=== PATIENT | female | born 1930 | race Caucasian/White ===

== ENCOUNTER 2021-09-17 10:20 | Inpatient (IN) ==
[2021-09-17 11:18] LABS: Basophils # (auto) 0.02 K/uL (0-0.2); Basophils % (auto) 0.3 %; Eosinophils # (auto) 0.15 K/uL (0-0.5); Eosinophils % (auto) 2.2 %; Hematocrit (blood only) 43.8 % (37-47); Hemoglobin 14.4 g/dL (12.0-16.0); Immature Granulocytes # (auto) 0.02 K/uL (0.00-0.02); Immature Granulocytes % (auto) 0.3 %; Lymphocytes # (auto) 0.84 K/uL (1.2-3.4); Lymphocytes % (auto) 12.2 %; Mean Corpuscular Hemoglobin 32.8 pg (25-34); Mean Corpuscular Hgb Conc 32.9 g/dL (32-36); Mean Corpuscular Volume 99.8 fL (80-100); Mean Platelet Volume 11.2 fL (7.4-10.4); Monocytes # (auto) 0.63 K/uL (0.11-0.59); Monocytes % (auto) 9.1 %; Neutrophils # (auto) 5.23 K/uL (1.4-6.5); Neutrophils % (auto) 75.9 %; Platelet Count 181 K/uL (130-400); RDW Standard Deviation 51.2 fL (36.4-46.3); Red Blood Count 4.39 M/uL (4.2-5.4); White Blood Count 6.89 K/uL (4.8-10.8)
--- NOTE | 2021-09-17 11:19 | XRay Report ---
XR chest 1V portable HISTORY: 89 years-old Female Stroke Like Symptoms acute strokelike symptoms COMPARISON: None TECHNIQUE: Portable AP view of the chest FINDINGS: Cardiac silhouette is enlarged. Calcified plaque of the thoracic aorta. No pneumothorax, pleural effu elen or lobar airspace consolidation. Minimal linear subsegmental left lung base opacities. Degenerat shila changes of the shoulders and spine with sigmoidal scoliosis. IMPRESSION: 1. Cardiac megaly without pulmonary edema. 2. Minimal linear subsegmental left lung base densities suggest atelectasis. ACT 112: Negative or not required by law. The above report was generated using voice recognition software. It may contain grammatical, syntax o r spelling errors. Electronically signed by: Chester Bowman M.D. 09/17/2021 11:18 AM
--- NOTE | 2021-09-17 11:31 | Emergency Department Note ---
Impression & Plan RUE weakness, Acute UTI (urinary tract infection), Atrial fibrillation ED Provider Note NAME: NINO ARCE AGE: 89 SEX: F : 1930 ARRIVES VIA: Ambulance INFORMANT: Patient, the patient's daughter ED PROVIDER(S): Ac Miles DO CHIEF COMPLAINT: Weakness HPI: The patient is an 89-year-old female who presented to the emergency department for an evaluation of weakness. The patient states that she went to bed without any symptoms last evening. She states that she awoke this morning and noticed that she was not able to use her right arm. She states that the arm did not seem to want to work as normal. She states that she tried to ambulate down the cid to use the bathroom but noticed that she felt off balance but she is unsure if it was because she could not use her right arm to navigate where she was going. She was eating breakfast with her daughter and was noticed to have trouble using the right arm to feed herself and also was having trouble swallowing. She did take her medications this morning including her blood thinner. She was diagnosed with atrial fibrillation approximately 1 month ago which was a new diagnosis for her. She used to take apixaban 2.5 mg twice a day but was recently switched to 5 mg twice a day because of the atrial fibrillation. She denies having any headache. She denies having any fever or cough. She is noticed no lower extremity swelling or pain. She states the sym ptoms are somewhat improved on her right upper extremity but not absent. ROS: See above HPI for pertinent positives & negatives. A total of 10 systems reviewed and were otherwise negative. PAST MEDICAL HISTORY: See Below PAST SURGICAL HISTORY: See Below FAMILY HISTORY: See Below SOCIAL HISTORY: See Below HOME MEDICATIONS: See Below ALLERGIES: See Below VITALS: See Below PHYSICAL EXAMINATION: GENERAL: Patient is awake alert in no acute distress patient is resting com fortably and showing no signs of anxiety EYES: The conjunctivae are clear. The pupils are round and reactive. EARS, NOSE, MOUTH AND THROAT: The nose is without any evidence of any deformity. NECK: The neck is nontender and supple. RESPIRATORY: Normal respiratory effort is noted there is no evidence of wheezing rhonchi or rales CARDIOVASCULAR: Irregular heart sounds are noted to auscultation. There is no definite murmur. GASTROINTESTINAL: The abdomen is soft. Abdomen is nontender. PELVIS: The Pelvis is stable. No tenderness to palpation is noted. BACK: No midline tenderness or or step-off noted range of motion in flexion extension as well as rotation no signs of muscle spasm noted MUSCULOSKELETAL/EXTREMITIES: There is no evidence of gross deformity full range of motion is noted in the hips and shoulders. SKIN: Skin was warm and dry. Pedal edema was noted bilaterally. NEUROLOGIC: Patient is awake alert and oriented x3. Patient is able to hold each leg off the bed for greater than 5 seconds. Window Shade Installer strength was symmetric. There is no facial droop. There is no drift in the upper extremities. MEDICAL DECISION MAKING: The patient is an 89-year-old female who presented to the emergency department with her daughter for an evaluation of upper extremity weakness. The patient was noted to be in her normal state of health when she awoke this morning. She started having right upper extremity weakness she states approximately 8:00 this morning. She did present to the emergency department but was not made a stroke alert initially because she did not have any definite focal neurologic deficits. She did complain of some right upper extremity weakness but on exam her strength appeared to be symmetric. The patient's daughter thought she could have a urinary tract infection. She does have some problems with urinating and appears to have significant incontinence. I discussed the patient's laboratory and radiographic studies with her and her daughter. CT the brain did not show any acute changes. CT angiography did show some changes it could be consistent with the patient's presentation today. She does take oral anticoagulation and she has been compliant with it as recently as this morning prior to coming to the emergency department. She would not be a candidate for TPA. She also does not have signs of a large vessel occlusion at this time and her exam would reveal a very low NIH score given her current exam. I discussed the patient's condition with the on-call [facility] hospitalist. They have agreed to evaluate the patient in the emergency department for further management and disposition. She may need further work-up including MRI the brain or possibly an echocardiogram. The atrial fibrillation is a new diagnosis for her but she is on oral anticoagulation. Triage Nursing notes reviewed. Prior medical records reviewed Vital Signs: reviewed and remarkable for elevated blood pressure. Differential diagnosis: Infection, dehydration, metabolic abnormality, hypo/hyperglycemia, electrolyte disturbance, anemia, hypoxia, cardiac sources, intracerebral event, toxicologic, neurologic, as well as other pathologies. ER treatment provided: See below Diagnostics interpreted by me: ECG: EKG was obtained in the emergency department. My interpretation is atrial fibrillation at 71 bpm. Poor R wave progression was noted. Anterior and inferior Q waves were noted. No PVCs were noted. No previous tracing was available. Cardiac Monitoring: An order was placed for continuous cardiac monitoring. The monitor shows a rate of 80 bpm with atrial fibrillation rhythm. Laboratory studies: As stated above and show below. Imaging studies: See below Consultation(s): I discussed this case with Dr Ladd who was organisational psychologist for the [facility] Hospitalist group Past Med/Surg History Medical History Arthritis Atrial fibrillation Balance disorder Fall History of femoral hernia History of umbilical hernia Hypertension Hypomagnesemia Hypothyroidism Vitamin B12 deficiency Vitamin D deficiency Surgical History History of arthroscopic knee surgery History of bilateral knee replacement History of eye surgery History of hysterectomy History of tonsillectomy Family History Father Myocardial infarction Denies family history of Ovarian cancer Prostate cancer Breast cancer Colorectal cancer Social History Smoking Status: Never smoker Tobacco Type: E-cigarettes / Vaping Second Hand Exposure: No; Hx Alcohol Use: No Hx Substance Use: No Hearing Ability: Hard of Hearing Current Living Situation: Family current occupational status: retired Feels Safe at Home: Yes Dental Care, Regularly: Yes Physical Activity Frequency: Daily Physical Activity Frequency Comment: walks with walker around the house - cubie Seatbelt Use: always Sunscreen Use: No Allergies Allergies Allergy/AdvReac Type Severity Reaction Status Date / Time cinnamon Allergy Unknown Verified 09/17/21 14:08 papaya Allergy Unknown Verified 09/17/21 14:08 Home Meds Home Medications Medication Instructions Recorded Confirmed 5-hydroxytryptophan (5-HTP) 50 mg 50 mg PO HS cap 11/27/20 09/17/21 capsule (Natrol 5-HTP) ascorbate calcium (vitamin C) 500 500 mg PO QAM 11/27/20 09/17/21 mg tablet calcium citrate 200 mg (950 mg) 100 mg PO DAILY@1200 tab 11/27/20 09/17/21 tablet cholecalciferol (vitamin D3) 125 125 mcg PO QAM 11/27/20 09/17/21 mcg (5,000 unit) capsule (Dialyvite Vitamin D) cranberry 500 mg capsule 500 mg PO DAILY@1200 cap 11/27/20 09/17/21 docusate sodium 100 mg capsule 100 mg PO TIDM cap 11/27/20 09/17/21 (Colace) turmeric root extract 500 mg 500 mg PO DAILY@1200 11/27/20 09/17/21 capsule magnesium glycinate 100 mg tablet 400 mg PO QAM tab 04/07/21 09/17/21 Lactobacillus acidophilus 1 tab PO HS 09/17/21 09/17/21 (Acidophilus) apixaban 2.5 mg tablet (Eliquis) 2.5 mg PO BID 09/17/21 09/17/21 celecoxib 100 mg capsule (Celebrex) 100 mg PO QDD 09/17/21 09/17/21 coQ10 (ubiquinol) 200 mg capsule 400 mg PO QAM 09/17/21 09/17/21 cyanocobalamin (vitamin B-12) 500 mcg PO QDD 09/17/21 09/17/21 1,000 mcg tablet (Vitamin B-12) hydrochlorothiazide 25 mg tablet 25 mg PO QAM 09/17/21 09/17/21 levothyroxine 100 mcg tablet 100 mcg PO DAILYBB 09/17/21 09/17/21 lisinopril 20 mg tablet 20 mg PO BIDM 09/17/21 09/17/21 zinc 50 mg tablet 50 mg PO DAILY@1200 09/17/21 09/17/21 Previous Rx's Medication Instructions Recorded amoxicillin 500 mg tablet 500 mg PO .COMPLEX #12 tab 03/16/21 hydralazine 25 mg tablet 25 mg PO QID #360 tab 06/11/21 Results & Data (ED) Vital Signs Vital Signs - 24 hr 09/17/21 10:35 09/17/21 10:40 09/17/21 11:00 Temperature 37 C Temperature Source Oral Pulse Rate 97 H 84 74 Pulse Rhythm Irregular Pulse Strength Normal Respiratory Rate 21 16 20 Respiratory Effort / Characteristics Non-Labored Spontaneous Respiratory Depth Normal Blood Pressure 190/120 H 190/100 H Blood Pressure Mean 143 130 Blood Pressure Position Sitting Pulse Oximetry Oxygen Delivery Method Sepsis Recent Fever Within 48 Hours No Sepsis New/Unexplained Change in Mental Status N/A Sepsis Action Taken by Nursing No Action Required 09/17/21 11:30 09/17/21 11:51 09/17/21 12:00 Temperature Temperature Source Pulse Rate 82 70 Pulse Rhythm Pulse Strength Respiratory Rate 19 19 Respiratory Effort / Characteristics Respiratory Depth Blood Pressure 172/99 H Blood Pressure Mean 123 Blood Pressure Position Pulse Oximetry Oxygen Delivery Method Room Air Sepsis Recent Fever Within 48 Hours Sepsis New/Unexplained Change in Mental Status Sepsis Action Taken by Nursing 09/17/21 12:30 09/17/21 13:07 09/17/21 13:34 Temperature Temperature Source Pulse Rate 86 79 91 H Pulse Rhythm Pulse Strength Respiratory Rate 22 17 18 Respiratory Effort / Characteristics Respiratory Depth Blood Pressure 194/105 H Blood Pressure Mean 134 Blood Pressure Position Pulse Oximetry Oxygen Delivery Method Sepsis Recent Fever Within 48 Hours Sepsis New/Unexplained Change in Mental Status Sepsis Action Taken by Nursing 09/17/21 14:00 Temperature 37.3 C Temperature Source Pulse Rate 80 Pulse Rhythm Pulse Strength Respiratory Rate 19 Respiratory Effort / Characteristics Respiratory Depth Blood Pressure 190/112 H Blood Pressure Mean 138 Blood Pressure Position Pulse Oximetry 96 Oxygen Delivery Method Sepsis Recent Fever Within 48 Hours Sepsis New/Unexplained Change in Mental Status Sepsis Action Taken by Longterm Medications Current Medication List: was personally reviewed by me Laboratory Data Attestation: I reviewed the patient's lab results. Result diagrams: 09/17/21 11:09 09/17/21 11:09 Lab Results 09/17/21 09/17/21 09/17/21 Range/Units 10:56 11:09 11:09 WBC 6.89 (4.8-10.8) K/uL RBC 4.39 (4.2-5.4) M/uL Hgb 14.4 (12.0-16.0) g/dL Hct 43.8 (37-47) % MCV 99.8 (80-100) fL MCH 32.8 (25-34) pg MCHC 32.9 (32-36) g/dL RDW Std Deviation 51.2 H (36.4-46.3) fL RDW Coeff of Evaristo 14.0 (11.5-14.5) % Plt Count 181 (130-400) K/uL MPV 11.2 H (7.4-10.4) fL Immature Gran % (Auto) 0.3 % Neut % (Auto) 75.9 % Lymph % (Auto) 12.2 % [place] % (Auto) 9.1 % Eos % (Auto) 2.2 % Baso % (Auto) 0.3 % Neut # (Auto) 5.23 (1.4-6.5) K/uL Lymph # (Auto) 0.84 L (1.2-3.4) K/uL [place] # (Auto) 0.63 H (0.11-0.59) K/uL Eos # (Auto) 0.15 (0-0.5) K/uL Baso # (Auto) 0.02 (0-0.2) K/uL Immature Gran # (Auto) 0.02 (0.00-0.02) K/uL PT 10.8 (9.0-12.0) Seconds INR 1.1 (0.9-1.1) APTT 33.3 H (21.0-31.0) Seconds PTT Ratio 1.3 Sodium (136-145) mmol/L Potassium (3.5-5.1) mmol/L Chloride (98-107) mmol/L Carbon Dioxide (21-32) mmol/L Anion Gap (3-11) BUN (7-18) mg/dl Creatinine (0.6-1.2) mg/dl Est Cr Clr Drug Dosing ml/min Est GFR ( Amer) ml/min Est GFR (Non-Af Amer) ml/min BUN/Creatinine Ratio (10-20) Glucose (70-99) mg/dl Calcium (8.5-10.1) mg/dl Magnesium (1.8-2.4) mg/dl Total Bilirubin (0.2-1) mg/dl AST (15-37) U/L ALT (12-78) U/L Alkaline Phosphatase (45-117) U/L Troponin I (0-0.045) ng/ml Total Protein (6.4-8.2) gm/dl Albumin (3.4-5.0) gm/dl Globulin (2.5-4.0) gm/dl Albumin/Globulin Ratio (0.9-2) Urine Color Yellow Urine Appearance Clear (Clear) Urine pH 6.5 (4.5-7.5) Ur Specific [place] 1.012 (1.000-1.030) Urine Protein 2+ H (Negative) Urine Glucose (UA) Negative (Negative) Urine Ketones Negative (Negative) Urine Blood Negative (Negative) Urine Nitrite Positive A (Negative) Urine Bilirubin Negative (Negative) Urine Urobilinogen Negative (Negative) Ur Leukocyte Esterase Negative (Negative) Urine WBC (Auto) 1-5 (0-5) /hpf Urine RBC (Auto) 0-4 (0-4) /hpf U Hyaline Cast (Auto) 1-5 (0-5) /lpf U Epithel Cells (Auto) >30 H (0-5) /lpf Urine Bacteria (Auto) 4+ H (Negative) 09/17/21 Range/Units 11:09 WBC (4.8-10.8) K/uL RBC (4.2-5.4) M/uL Hgb (12.0-16.0) g/dL Hct (37-47) % MCV (80-100) fL MCH (25-34) pg MCHC (32-36) g/dL RDW Std Deviation (36.4-46.3) fL RDW Coeff of Evaristo (11.5-14.5) % Plt Count (130-400) K/uL MPV (7.4-10.4) fL Immature Gran % (Auto) % Neut % (Auto) % Lymph % (Auto) % [place] % (Auto) % Eos % (Auto) % Baso % (Auto) % Neut # (Auto) (1.4-6.5) K/uL Lymph # (Auto) (1.2-3.4) K/uL [place] # (Auto) (0.11-0.59) K/uL Eos # (Auto) (0-0.5) K/uL Baso # (Auto) (0-0.2) K/uL Immature Gran # (Auto) (0.00-0.02) K/uL PT (9.0-12.0) Seconds INR (0.9-1.1) APTT (21.0-31.0) Seconds PTT Ratio Sodium 135 L (136-145) mmol/L Potassium (3.5-5.1) mmol/L Chloride 104 (98-107) mmol/L Carbon Dioxide 21 (21-32) mmol/L Anion Gap 10.0 (3-11) BUN 26 H (7-18) mg/dl Creatinine 0.79 (0.6-1.2) mg/dl Est Cr Clr Drug Dosing 28.2 ml/min Est GFR ( Amer) 76.9 ml/min Est GFR (Non-Af Amer) 66.4 ml/min BUN/Creatinine Ratio 32.4 H (10-20) Glucose 86 (70-99) mg/dl Calcium 9.5 (8.5-10.1) mg/dl Magnesium (1.8-2.4) mg/dl Total Bilirubin 0.6 (0.2-1) mg/dl AST (15-37) U/L ALT 18 (12-78) U/L Alkaline Phosphatase 67 (45-117) U/L Troponin I 0.034 (0-0.045) ng/ml Total Protein 6.8 (6.4-8.2) gm/dl Albumin 3.1 L (3.4-5.0) gm/dl Globulin 3.7 (2.5-4.0) gm/dl Albumin/Globulin Ratio 0.8 L (0.9-2) Urine Color Urine Appearance (Clear) Urine pH (4.5-7.5) Ur Specific [place] (1.000-1.030) Urine Protein (Negative) Urine Glucose (UA) (Negative) Urine Ketones (Negative) Urine Blood (Negative) Urine Nitrite (Negative) Urine Bilirubin (Negative) Urine Urobilinogen (Negative) Ur Leukocyte Esterase (Negative) Urine WBC (Auto) (0-5) /hpf Urine RBC (Auto) (0-4) /hpf U Hyaline Cast (Auto) (0-5) /lpf U Epithel Cells (Auto) (0-5) /lpf Urine Bacteria (Auto) (Negative) Administered Medications Discontinued Medications Ceftriaxone Sodium (Rocephin) 1,000 mg in 50 mls @ 100 mls/hr IV NOW STA Stop: 09/17/21 13:19 Last Admin: 09/17/21 14:11 Dose: 100 mls/hr Documented by: [id number] Ioversol (Optiray 320 125ml) 116 ml IV ONCE ONE Stop: 09/17/21 13:35 Last Admin: 09/17/21 13:35 Dose: 116 ml Documented by: [id number] Imaging Data Radiologist's Impression: Chest X-Ray 09/17/21 10:44 XR chest 1V portable HISTORY: 89 years-old Female Stroke Like Symptoms acute strokelike symptoms COMPARISON: None TECHNIQUE: Portable AP view of the chest FINDINGS: Cardiac silhouette is enlarged. Calcified plaque of the thoracic aorta. No pneumothorax, pleural effusion or lobar airspace consolidation. Minimal linear subsegmental left lung base opacities. Degenerative changes of the shoulders and spine with sigmoidal scoliosis. IMPRESSION: 1. Cardiac megaly without pulmonary edema. 2. Minimal linear subsegmental left lung base densities suggest atelectasis. ACT 112: Negative or not required by law. The above report was generated using voice recognition software. It may contain grammatical, syntax or spelling errors. Electronically signed by: Chester Bowman M.D. 09/17/2021 11:[address] 09/17/21 10:44 CT head/brain wo con CLINICAL HISTORY: Stroke Like Symptoms weakness, lethargy Technique: Contiguous axial CT images of the head were acquired from the base of the skull to the vertex without intravenous contrast administration. Images were viewed in brain, subdural and bone windows. Automated dose lowering techniques and/or adjustment according to patient size were utilized for this exam. Comparison: None available at the time of this dictation. Findings: Areas of decreased attenuation are present in the periventricular and subcort ical white matter bilaterally consistent with small vessel ischemic disease. Generalized cerebral atrophy with commensurate enlargement of the ventricles, sulci, and cisterns is also present. There is no acute intracranial hemorrhage or evidence of acute territorial infarction. No shift of the midline structures, mass effect, or extra-axial abnormalities are shown. Atherosclerotic calcifications are present in the intracranial segments of the internal carotid arteries. Imaged portions of the paranasal sinuses and mastoid air cells are clear. The orbits appear normal. There are no acute fractures of the calvaria or scalp swelling. Impression: No acute intracranial hemorrhage, no evidence of acute territorial infarction or other acute intracranial disease process. ACT 112: Negative or not required by law. Electronically signed by: Volodymyr Andrade M.D. 09/17/2021 1:41 PM Head CTA 09/17/21 10:44 CT angio head w con, CT angio neck with con CLINICAL HISTORY: 89 years-old Female with Stroke Like Symptoms. Acute strokelike symptoms with weakness COMPARISON STUDY: Head CT of same day TECHNIQUE: Following the IV administration of 116 cc of Optiray, CT angiogram of the head and neck was performed from the aortic arch to the skull apex. Images are reviewed in the axial, sagittal, and coronal planes. 3-D MIPS images are created and assessed. IV contrast was administered without complication. All measurements were obtained according to NASCET criteria. A dose lowering technique was utilized adhering to the principles of ALARA. FINDINGS: Atherosclerosis of the thoracic aortic arch. Patency of the innominate and imaged subclavian arteries. The common carotid arteries are patent. Moderate atherosclerotic plaque of the carotid bulbs and proximal cervical segments of the internal carotid arteries results in less than 50% stenosis bilaterally. There is mild tortuosity of the cervical segments of the internal carotid arteries with kinking and tortuosity of the proximal cervical segment left ICA on image 210 series 6. There may be a small intraluminal web present on image 210 series 6. Atherosclerotic plaque of the cavernous and supraclinoid segments without high-grade stenosis. Fusiform dilation of the cavernous segment right internal carotid artery measures 9 mm on 350 compared to 7 mm on the left. Additionally, there is fusiform dilation of the right carotid terminus measuring up to 9 mm transversely on image 369. The anterior and middle cerebral arteries are patent. There is mild multifocal luminal narrowing of the anterior cerebral arteries. There is a short segment of high-grade stenosis within the A2 segment right anterior cerebral artery on image 420. Codominant vertebral arteries. Mild multifocal luminal narrowing of the V2 segment secondary to degenerative changes of the cervical spine. The basilar and posterior cerebral arteries are patent. origin of the right posterior cerebral artery. Cerebral venous sinuses are patent. There is no abnormal intracranial enhancement. Age-related involutional changes with chronic microvascular ischemic disease. Mild bronchial wall thickening of the long apices. Right paratracheal adenopathy measures up to 12 mm, indeterminate. Tracheal secretions. Degenerative changes of the cervical spine without acute fracture. IMPRESSION: 1. Atherosclerotic plaque of the carotid bulbs results in less than 50% stenosis bilaterally. 2. 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 3. 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 No saccular aneurysm or aneurysm rupture. 4. 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 5. Mild nonspecific paratracheal adenopathy. ACT 112: Negative or not required by law. The above report was generated using voice recognition software. It may contain grammatical, syntax or spelling errors. Electronically signed by: Chester Bowman M.D. 09/17/2021 1:58 PM Neck CTA 09/17/21 10:44 CT angio head w con, CT angio neck with con CLINICAL HISTORY: 89 years-old Female with Stroke Like Symptoms. Acute strokelike symptoms with weakness COMPARISON STUDY: Head CT of same day TECHNIQUE: Following the IV administration of 116 cc of Optiray, CT angiogram of the head and neck was performed from the aortic arch to the skull apex. Images are reviewed in the axial, sagittal, and coronal planes. 3-D MIPS images are created and assessed. IV contrast was administered without complication. All measurements were obtained according to NASCET criteria. A dose lowering technique was utilized adhering to the principles of ALARA. FINDINGS: Atherosclerosis of the thoracic aortic arch. Patency of the innominate and imaged subclavian arteries. The common carotid arteries are patent. Moderate atherosclerotic plaque of the carotid bulbs and proximal cervical segments of the internal carotid arteries results in less than 50% stenosis bilaterally. There is mild tortuosity of the cervical segments of the internal carotid arteries with kinking and tortuosity of the proximal cervical segment left ICA on image 210 series 6. There may be a small intraluminal web present on image 210 series 6. Atherosclerotic plaque of the cavernous and supraclinoid segments without high-grade stenosis. Fusiform dilation of the cavernous segment right internal carotid artery measures 9 mm on 350 compared to 7 mm on the left. Additionally, there is fusiform dilation of the right carotid terminus measuring up to 9 mm transversely on image 369. The anterior and middle cerebral arteries are patent. There is mild multifocal luminal narrowing of the anterior cerebral arteries. There is a short segment of high-grade stenosis within the A2 segment right anterior cerebral artery on image 420. Codominant vertebral arteries. Mild multifocal luminal narrowing of the V2 segment secondary to degenerative changes of the cervical spine. The basilar and posterior cerebral arteries are patent. origin of the right posterior cerebral artery. Cerebral venous sinuses are patent. There is no abnormal intracranial enhancement. Age-related involutional changes with chronic microvascular ischemic disease. Mild bronchial wall thickening of the long apices. Right paratracheal adenopathy measures up to 12 mm, indeterminate. Tracheal secretions. Degenerative changes of the cervical spine without acute fracture. IMPRESSION: 1. Atherosclerotic plaque of the carotid bulbs results in less than 50% stenosis bilaterally. 2. 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 3. 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 No saccular aneurysm or aneurysm rupture. 4. 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 5. Mild nonspecific paratracheal adenopathy. ACT 112: Negative or not required by law. The above report was generated using voice recognition software. It may contain grammatical, syntax or spelling errors. Electronically signed by: Chester Bowman M.D. 09/17/2021 1:58 PM Discharge Plan Visit Data Chief Complaint: Weakness Stated Complaint: WEAKNESS ED Provider: Ac Miles Discharge Problem: RUE weakness, Acute UTI (urinary tract infection), Atrial fibrillation Patient Disposition: Being Evaluated by Hospitalist Forms Stand Alone Forms: [facility] Prescriptions Prescriptions: No Action amoxicillin 500 mg tablet 500 mg PO .COMPLEX Qty: 12 RF: 1 hydralazine 25 mg tablet 25 mg PO QID Qty: 360 RF: 1 calcium citrate 200 mg (950 mg) tablet 100 mg PO DAILY@1200 RF: 0 cranberry 500 mg capsule 500 mg PO DAILY@1200 RF: 0 docusate sodium [Colace] 100 mg capsule 100 mg PO TIDM RF: 0 turmeric root extract 500 mg capsule 500 mg PO DAILY@1200 RF: 0 ascorbate calcium (vitamin C) 500 mg tablet 500 mg PO QAM RF: 0 cholecalciferol (vitamin D3) [Dialyvite Vitamin D] 125 mcg (5,000 unit) capsule 125 mcg PO QAM RF: 0 Natrol 5-HTP 50 mg capsule 50 mg PO HS RF: 0 magnesium glycinate 100 mg tablet 400 mg PO QAM RF: 0 cyanocobalamin (vitamin B-12) [Vitamin B-12] 1,000 mcg Tablet 500 mcg PO QDD RF: 0 zinc 50 mg Tablet 50 mg PO DAILY@1200 RF: 0 Acidophilus Tablet,Chewable 1 tab PO HS RF: 0 coQ10 (ubiquinol) 200 mg Capsule 400 mg PO QAM RF: 0 lisinopril 20 mg tablet 20 mg PO BIDM RF: 0 levothyroxine 100 mcg tablet 100 mcg PO DAILYBB RF: 0 hydrochlorothiazide 25 mg tablet 25 mg PO QAM RF: 0 celecoxib [Celebrex] 100 mg capsule 100 mg PO QDD RF: 0 Eliquis 2.5 mg tablet 2.5 mg PO BID RF: 0 Referrals Referrals: Ac Richards MD [Physician] -
[2021-09-17 11:41] LABS: Appearance Urine Clear (Clear); Bacteria Urine Automated 4+ (Negative); Bilirubin Urine Negative (Negative); Blood Urine Negative (Negative); Color Urine Yellow; Epithelial Cell Urine Auto >30 /lpf (0-5); Glucose Urine UA Negative (Negative); Ketones Urine Negative (Negative); Leukocyte Esterase Urine Negative (Negative); Nitrite Urine Positive (Negative); Protein Urine 2+ (Negative); Specific Gravity Urine 1.012 (1.000-1.030); Urobilinogen Urine Negative (Negative); pH Urine 6.5 (4.5-7.5)
[2021-09-17 11:44] LABS: INR 1.1 (0.9-1.1); Partial Thromboplastin Ratio 1.3; Partial Thromboplastin Time 33.3 Seconds (21.0-31.0); Prothrombin Time 10.8 Seconds (9.0-12.0)
[2021-09-17 12:24] LABS: RBC Urine Automated 0-4 /hpf (0-4)
[2021-09-17] MEDS ORDERED: cefTRIAXone SODIUM 1,000 MG/50 ML BAG IV STA (12:50)
[2021-09-17 12:58] LABS: Albumin Level 3.1 gm/dl (3.4-5.0); BUN Creatinine Ratio 32.4 (10-20); Calcium 9.5 mg/dl (8.5-10.1); Creatinine Clr Calc Pharmacy 28.2 ml/min; Est GFR (African American) 76.9 ml/min; Est GFR (Non-African American) 66.4 ml/min
[2021-09-17 13:00] LABS: Albumin Globulin Ratio 0.8 (0.9-2); Bilirubin,Total 0.6 mg/dl (0.2-1); Globulin 3.7 gm/dl (2.5-4.0); Total Protein 6.8 gm/dl (6.4-8.2); Troponin I 0.034 ng/ml (0-0.045)
[2021-09-17] MEDS ORDERED: OPTIRAY 320 125ml IV ONE (13:34)
--- NOTE | 2021-09-17 13:43 | CT Scan Report ---
CT head/brain wo con CLINICAL HISTORY: Stroke Like Symptoms weakness, lethargy Technique: Contiguous axial CT images of the head were acquired from the base of the skull to the amelia ana lilia without intravenous contrast administration. Images were viewed in brain, subdural and bone windo ws. Automated dose lowering techniques and/or adjustment according to patient size were utilized for this exam. Comparison: None available at the time of this dictation. Findings: Areas of decreased attenuation are present in the periventricular and subcortical white matter bilate rally consistent with small vessel ischemic disease. Generalized cerebral atrophy with commensurate e nlargement of the ventricles, sulci, and cisterns is also present. There is no acute intracranial hem orrhage or evidence of acute territorial infarction. No shift of the midline structures, mass effect, or extra-axial abnormalities are shown. Atherosclerotic calcifications are present in the intracran ial segments of the internal carotid arteries. Imaged portions of the paranasal sinuses and mastoid air cells are clear. The orbits appear normal. There are no acute fractures of the calvaria or scalp swelling. Impression: No acute intracranial hemorrhage, no evidence of acute territorial infarction or other acute intracra nial disease process. ACT 112: Negative or not required by law. Electronically signed by: Volodymyr Andrade M.D. 09/17/2021 1:41 PM
--- NOTE | 2021-09-17 14:00 | CT Scan Report ---
CT angio head w con, CT angio neck with con CLINICAL HISTORY: 89 years-old Female with Stroke Like Symptoms. Acute strokelike symptoms with we akness COMPARISON STUDY: Head CT of same day TECHNIQUE: Following the IV administration of 116 cc of Optiray, CT angiogram of the head and neck wa s performed from the aortic arch to the skull apex. Images are reviewed in the axial, sagittal, and c oronal planes. 3-D MIPS images are created and assessed. IV contrast was administered without complic ation. All measurements were obtained according to NASCET criteria. A dose lowering technique was uti lized adhering to the principles of ALARA. FINDINGS: Atherosclerosis of the thoracic aortic arch. Patency of the innominate and imaged subclavia n arteries. The common carotid arteries are patent. Moderate atherosclerotic plaque of the carotid bu lbs and proximal cervical segments of the internal carotid arteries results in less than 50% stenosis bilaterally. There is mild tortuosity of the cervical segments of the internal carotid arteries with kinking and tortuosity of the proximal cervical segment left ICA on image 210 series 6. There may be a small intraluminal web present on image 210 series 6. Atherosclerotic plaque of the cavernous and supraclinoid segments without high-grade stenosis. Fusiform dilation of the cavernous segment right i nternal carotid artery measures 9 mm on 350 compared to 7 mm on the left. Additionally, there is fusi form dilation of the right carotid terminus measuring up to 9 mm transversely on image 369. The anter ior and middle cerebral arteries are patent. There is mild multifocal luminal narrowing of the anteri or cerebral arteries. There is a short segment of high-grade stenosis within the A2 segment right ant erior cerebral artery on image 420. Codominant vertebral arteries. Mild multifocal luminal narrowing of the V2 segment secondary to degen erative changes of the cervical spine. The basilar and posterior cerebral arteries are patent. origin of the right posterior cerebral artery. Cerebral venous sinuses are patent. There is no abnorm al intracranial enhancement. Age-related involutional changes with chronic microvascular ischemic dis ease. Mild bronchial wall thickening of the long apices. Right paratracheal adenopathy measures up to 12 mm , indeterminate. Tracheal secretions. Degenerative changes of the cervical spine without acute fractu re. IMPRESSION: 1. Atherosclerotic plaque of the carotid bulbs results in less than 50% stenosis bilaterally. 2. 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 3. 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 No saccular aneurysm or aneurysm rupture. 4. 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 5. Mild nonspecific paratracheal adenopathy. ACT 112: Negative or not required by law. The above report was generated using voice recognition software. It may contain grammatical, syntax o r spelling errors. Electronically signed by: Chester Bowman M.D. 09/17/2021 1:58 PM
--- NOTE | 2021-09-17 15:42 | History & Physical Report ---
Date of Service September 17, 2021 Assessment & Plan (1) RUE weakness: Plan: Right upper arm weakness with apraxia and confusion - DDX: TIA vs. CVA vs. UTI recrudescent? - SX resolved on examination - Continue with evaluation with MRI for CVA - UTI treatment with Rocephin (2) TIA (transient ischemic attack): Plan: TIA vs. CVA- risk factors- Age, HLD, HTN, Afib, previous smoker - As above symptoms currently resolved except for decreased sensation on RUE - NIHSS- 1 - Asa 81 mg daily added - BP allow permissive HTN - AFIB known- continue Apixaban 5mg PO BID - HLD- patient stopped taking her statin in the past secondary to Keto diet change - lipid panel in the morning institute lipid lowering medication as indicated - MRI- pending - ECHO with bubble study- pending - Neurology consult - PT/OT consult - passed bedside swallow screen (3) Carotid aneurysm, right: Plan: Fusiform aneurysm dilation of the cavernous and supraclinoid segments of the right internal carotid artery. No saccular aneurysm or aneurysm rupture. 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 [employer]- receives most of her care now at the [place]. Patient comes in to the emergency room accompanied by her daughter, who lulu lives with for complaints of right sided weakness, and apraxia of the right arm and leg. Patient reports she felt fine when she went to bed last night, however upon awakening this morning, she was noted to have an increase in her balance instability and decrease coordination of her right arm. She was able to get her-self dress, but reported to her daughter that she was having difficulty grasping her walker with her right hand. She then went in to get breakfast and her medications, when her daughter came back in a few minutes later- she was noted to have yogurt all over her face and clothes and told her daughter that she was having more trouble using her arm and didn't' know what she was doing. In the EMD the patient had routine labs done, CXR, ECG, CT of the head and CTA of the head and neck. These were negative for large acute event but notable for fusiform aneurysms. She also had a UA done that was positive for bacteria and nitrite positive. Her symptoms of her arm weakness and apraxia are improved since this morning. She does report decrease in sensation in the right upper arm up to her shoulder level, but can not tell if this is worse. NIHSS currently- 1. Patient was not a thrombolytic candidate secondary to time last known well. Patient will be admitted to continue workup of CVA vs. TIA and treatment of her UTI. She is newly diagnosed with atrial fibrillation within the past month and has had her Eliquis increased to 5mg PO BID. Patient has received her COVID vaccine and her COVID test on admission is: NEGA TIVE Allergies Allergy/AdvReac Type Severity Reaction Status Date / Time cinnamon Allergy Unknown Verified 09/17/21 14:08 papaya Allergy Unknown Verified 09/17/21 14:08 Home Medications Medication Instructions Recorded Confirmed Type 5-hydroxytryptophan (5-HTP) 50 mg 50 mg PO HS cap 11/27/20 09/17/21 History capsule (Natrol 5-HTP) ascorbate calcium (vitamin C) 500 500 mg PO QAM 11/27/20 09/17/21 History mg tablet calcium citrate 200 mg (950 mg) 100 mg PO DAILY@1200 tab 11/27/20 09/17/21 History tablet cholecalciferol (vitamin D3) 125 125 mcg PO QAM 11/27/20 09/17/21 History mcg (5,000 unit) capsule (Dialyvite Vitamin D) cranberry 500 mg capsule 500 mg PO DAILY@1200 cap 11/27/20 09/17/21 History docusate sodium 100 mg capsule 100 mg PO TIDM cap 11/27/20 09/17/21 History (Colace) turmeric root extract 500 mg 500 mg PO DAILY@1200 11/27/20 09/17/21 History capsule amoxicillin 500 mg tablet 500 mg PO .COMPLEX #12 tab 03/16/21 09/17/21 Rx magnesium glycinate 100 mg tablet 400 mg PO QAM tab 04/07/21 09/17/21 History hydralazine 25 mg tablet 25 mg PO QID #360 tab 06/11/21 09/17/21 Rx Lactobacillus acidophilus 1 tab PO HS 09/17/21 09/17/21 History (Acidophilus) apixaban 2.5 mg tablet (Eliquis) 2.5 mg PO BID 09/17/21 09/17/21 History celecoxib 100 mg capsule (Celebrex) 100 mg PO QDD 09/17/21 09/17/21 History coQ10 (ubiquinol) 200 mg capsule 400 mg PO QAM 09/17/21 09/17/21 History cyanocobalamin (vitamin B-12) 500 mcg PO QDD 09/17/21 09/17/21 History 1,000 mcg tablet (Vitamin B-12) hydrochlorothiazide 25 mg tablet 25 mg PO QAM 09/17/21 09/17/21 History levothyroxine 100 mcg tablet 100 mcg PO DAILYBB 09/17/21 09/17/21 History lisinopril 20 mg tablet 20 mg PO BIDM 09/17/21 09/17/21 History zinc 50 mg tablet 50 mg PO DAILY@1200 09/17/21 09/17/21 History Past Med/Surg History Medical History Arthritis Atrial fibrillation Balance disorder Fall History of femoral hernia History of umbilical hernia Hypertension Hypomagnesemia Hypothyroidism Vitamin B12 deficiency Vitamin D deficiency Surgical History History of arthroscopic knee surgery History of bilateral knee replacement History of eye surgery History of hysterectomy History of tonsillectomy Family History Father Myocardial infarction Denies family history of Ovarian cancer Prostate cancer Breast cancer Colorectal cancer Social History Smoking Status: Never smoker Tobacco Type: E-cigarettes / Vaping Second Hand Exposure: No; Do You Dip or Chew Tobacco: No; Tobacco Cessation Education Requested by Patient: No Hx Alcohol Use: No Hx Substance Use: No Communication Ability: Effective Hearing Ability: Hard of Hearing 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 lives w/ daughter, Lashanda Mijares current occupational status: retired Other Information That Helps Us Care for You: No Feels Safe at Home: Yes Safety Concerns: Feels Safe At This Time Dental Care, Regularly: Yes Physical Activity Frequency: Daily Physical Activity Frequency Comment: walks with walker around the house - cubie Seatbelt Use: always Sunscreen Use: No Assistive Devices: Walker Assistive Devices Comment: Pt. uses personal wheelchair at home, bedrest at this time Review of Systems Review of Systems: REVIEW OF SYSTEMS: Constitutional: No fever, sweats or chills Eyes: No diplopia, no worsening or blurred vision ENT: normal hearing, no trouble swallowing Nuero: (+) right arm weakness and decrease sensation Respiratory: No cough, sputum, dyspnea at rest or on exertion Cardiovascular: No chest pain, tightness or palpitations Abdomen: No pain, nausea, vomiting, diarrhea or constipation Musculoskeletal: (+) neck stiffness, and back pain, No calf pain, swelling Neurologic: No weakness, numbness/tingling, or balance problems Psychiatric: No anxiety or depression Skin: No rash or itch Physical Exam Physical Exam: PHYSICAL EXAM: General: awake, alert, no apparent distress Head: Normocephalic, atraumatic ENT: no pharyngeal exudate, mucous membranes moist Neuro: PERRL, EOMI, AAO x 3, speech clear and appropriate, strength intact bilaterally 5/5, sensation intact and equal all extremities and dermatomes, no pronator drift, decrease sensation to right upper arm, no ataxia, no neglect, no visual field cuts. Chest: equal rise and fall of the chest, no accessory muscle use, no heaves or thrills, Clear to auscultation, on room air, Cardiac: irregular rate and rhythm, telemetry reviewed, skin warm dry, cap refill <3 seconds, peripheral pulses +2 no JVD, no murmur, no edema GI: NABS x 4 quadrants, soft, nontender to palpation, no rebound, guarding or tenderness : Spontaneously voiding, increase in frequency and incontinence Extremities: Normal inspection, no peripheral edema or erythema, calfs nontender to palpation Psych: Normal mood and affect Skin: no rash or erythema Results & Data Results & Data ([facility]) Vital Signs (Past 12 Hours) Vital Signs Temp Pulse Resp BP Pulse Ox 09/17/21 14:00 37.3 C 80 19 190/112 H 96 09/17/21 13:34 91 H 18 09/17/21 13:07 79 17 09/17/21 12:30 86 22 194/105 H 09/17/21 12:00 70 19 09/17/21 11:30 82 19 172/99 H 09/17/21 11:00 74 20 190/100 H 09/17/21 10:40 37 C 84 16 190/120 H 09/17/21 10:35 97 H 21 Laboratory Results Abnormal lab results 09/17/21 09/17/21 09/17/21 Range/Units 10:56 11:09 11:09 RDW Std Deviation 51.2 H (36.4-46.3) fL MPV 11.2 H (7.4-10.4) fL Lymph # (Auto) 0.84 L (1.2-3.4) K/uL [place] # (Auto) 0.63 H (0.11-0.59) K/uL APTT 33.3 H (21.0-31.0) Seconds Sodium (136-145) mmol/L BUN (7-18) mg/dl BUN/Creatinine Ratio (10-20) Albumin (3.4-5.0) gm/dl Albumin/Globulin Ratio (0.9-2) Urine Protein 2+ H (Negative) Urine Nitrite Positive A (Negative) U Epithel Cells (Auto) >30 H (0-5) /lpf Urine Bacteria (Auto) 4+ H (Negative) 09/17/21 Range/Units 11:09 RDW Std Deviation (36.4-46.3) fL MPV (7.4-10.4) fL Lymph # (Auto) (1.2-3.4) K/uL [place] # (Auto) (0.11-0.59) K/uL APTT (21.0-31.0) Seconds Sodium 135 L (136-145) mmol/L BUN 26 H (7-18) mg/dl BUN/Creatinine Ratio 32.4 H (10-20) Albumin 3.1 L (3.4-5.0) gm/dl Albumin/Globulin Ratio 0.8 L (0.9-2) Urine Protein (Negative) Urine Nitrite (Negative) U Epithel Cells (Auto) (0-5) /lpf Urine Bacteria (Auto) (Negative) Diagnostic Findings Chest X-Ray 09/17/21 10:44 XR chest 1V portable HISTORY: 89 years-old Female Stroke Like Symptoms acute strokelike symptoms COMPARISON: None TECHNIQUE: Portable AP view of the chest FINDINGS: Cardiac silhouette is enlarged. Calcified plaque of the thoracic aorta. No pneumothorax, pleural effusion or lobar airspace consolidation. Minimal linear subsegmental left lung base opacities. Degenerative changes of the shoulders and spine with sigmoidal scoliosis. IMPRESSION: 1. Cardiac megaly without pulmonary edema. 2. Minimal linear subsegmental left lung base densities suggest atelectasis. ACT 112: Negative or not required by law. The above report was generated using voice recognition software. It may contain grammatical, syntax or spelling errors. Electronically signed by: Chester Bowman M.D. 09/17/2021 11:[address] 09/17/21 10:44 CT head/brain wo con CLINICAL HISTORY: Stroke Like Symptoms weakness, lethargy Technique: Contiguous axial CT images of the head were acquired from the base of the skull to the vertex without intravenous contrast administration. Images were viewed in brain, subdural and bone windows. Automated dose lowering techniques and/or adjustment according to patient size were utilized for this exam. Comparison: None available at the time of this dictation. Findings: Areas of decreased attenuation are present in the periventricular and subcortical white matter bilaterally consistent with small vessel ischemic disease. Generalized cerebral atrophy with commensurate enlargement of the ventricles, sulci, and cisterns is also present. There is no acute intracranial hemorrhage or evidence of acute territorial infarction. No shift of the midline structures, mass effect, or extra-axial abnormalities are shown. Atherosclerotic calcifications are present in the intracranial segments of the internal carotid arteries. Imaged portions of the paranasal sinuses and mastoid air cells are clear. The orbits appear normal. There are no acute fractures of the calvaria or scalp swelling. Impression: No acute intracranial hemorrhage, no evidence of acute territorial infarction or other acute intracranial disease process. ACT 112: Negative or not required by law. Electronically signed by: Volodymyr Andrade M.D. 09/17/2021 1:41 PM Head CTA 09/17/21 10:44 CT angio head w con, CT angio neck with con CLINICAL HISTORY: 89 years-old Female with Stroke Like Symptoms. Acute strokelike symptoms with weakness COMPARISON STUDY: Head CT of same day TECHNIQUE: Following the IV administration of 116 cc of Optiray, CT angiogram of the head and neck was performed from the aortic arch to the skull apex. Images are reviewed in the axial, sagittal, and coronal planes. 3-D MIPS images are created and assessed. IV contrast was administered without complication. All measurements were obtained according to NASCET criteria. A dose lowering technique was utilized adhering to the principles of ALARA. FINDINGS: Atherosclerosis of the thoracic aortic arch. Patency of the innominate and imaged subclavian arteries. The common carotid arteries are patent. Moderate atherosclerotic plaque of the carotid bulbs and proximal cervical segments of the internal carotid arteries results in less than 50% stenosis bilaterally. There is mild tortuosity of the cervical segments of the internal carotid arteries with kinking and tortuosity of the proximal cervical segment left ICA on image 210 series 6. There may be a small intraluminal web present on image 210 series 6. Atherosclerotic plaque of the cavernous and supraclinoid segments without high-grade stenosis. Fusiform dilation of the cavernous segment right internal carotid artery measures 9 mm on 350 compared to 7 mm on the left. Additionally, there is fusiform dilation of the right carotid terminus measuring up to 9 mm transversely on image 369. The anterior and middle cerebral arteries are patent. There is mild multifocal luminal narrowing of the anterior cerebral arteries. There is a short segment of high-grade stenosis within the A2 segment right anterior cerebral artery on image 420. Codominant vertebral arteries. Mild multifocal luminal narrowing of the V2 segment secondary to degenerative changes of the cervical spine. The basilar and posterior cerebral arteries are patent. origin of the right posterior cerebral artery. Cerebral venous sinuses are patent. There is no abnormal intracranial enhancement. Age-related involutional changes with chronic microvascular ischemic disease. Mild bronchial wall thickening of the long apices. Right paratracheal adenopathy measures up to 12 mm, indeterminate. Tracheal secretions. Degenerative changes of the cervical spine without acute fracture. IMPRESSION: 1. Atherosclerotic plaque of the carotid bulbs results in less than 50% stenosis bilaterally. 2. 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 3. 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 No saccular aneurysm or aneurysm rupture. 4. 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 5. Mild nonspecific paratracheal adenopathy. ACT 112: Negative or not required by law. The above report was generated using voice recognition software. It may contain grammatical, syntax or spelling errors. Electronically signed by: Chester Bowman M.D. 09/17/2021 1:58 PM Neck CTA 09/17/21 10:44 CT angio head w con, CT angio neck with con CLINICAL HISTORY: 89 years-old Female with Stroke Like Symptoms. Acute strokelike symptoms with weakness COMPARISON STUDY: Head CT of same day TECHNIQUE: Following the IV administration of 116 cc of Optiray, CT angiogram of the head and neck was performed from the aortic arch to the skull apex. Images are reviewed in the axial, sagittal, and coronal planes. 3-D MIPS images are created and assessed. IV contrast was administered without complication. All measurements were obtained according to NASCET criteria. A dose lowering technique was utilized adhering to the principles of ALARA. FINDINGS: Atherosclerosis of the thoracic aortic arch. Patency of the innominate and imaged subclavian arteries. The common carotid arteries are patent. Moderate atherosclerotic plaque of the carotid bulbs and proximal cervical segments of the internal carotid arteries results in less than 50% stenosis bilaterally. There is mild tortuosity of the cervical segments of the internal carotid arteries with kinking and tortuosity of the proximal cervical segment left ICA on image 210 series 6. There may be a small intraluminal web present on image 210 series 6. Atherosclerotic plaque of the cavernous and supraclinoid segments without high-grade stenosis. Fusiform dilation of the cavernous segment right internal carotid artery measures 9 mm on 350 compared to 7 mm on the left. Additionally, there is fusiform dilation of the right carotid terminus measuring up to 9 mm transversely on image 369. The anterior and middle cerebral arteries are patent. There is mild multifocal luminal narrowing of the anterior cerebral arteries. There is a short segment of high-grade stenosis within the A2 segment right anterior cerebral artery on image 420. Codominant vertebral arteries. Mild multifocal luminal narrowing of the V2 segment secondary to degenerative changes of the cervical spine. The basilar and posterior cerebral arteries are patent. origin of the right posterior cerebral artery. Cerebral venous sinuses are patent. There is no abnormal intracranial enhancement. Age-related involutional changes with chronic microvascular ischemic disease. Mild bronchial wall thickening of the long apices. Right paratracheal adenopathy measures up to 12 mm, indeterminate. Tracheal secretions. Degenerative changes of the cervical spine without acute fracture. IMPRESSION: 1. Atherosclerotic plaque of the carotid bulbs results in less than 50% stenosis bilaterally. 2. 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 3. 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 No saccular aneurysm or aneurysm rupture. 4. 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 5. Mild nonspecific paratracheal adenopathy. ACT 112: Negative or not required by law. The above report was generated using voice recognition software. It may contain grammatical, syntax or spelling errors. Electronically signed by: Chester Bowman M.D. 09/17/2021 1:58 PM Medications Administered Discontinued Medications Ceftriaxone Sodium (Rocephin) 1,000 mg in 50 mls @ 100 mls/hr IV NOW STA Stop: 09/17/21 13:19 Last Infusion: 09/17/21 14:50 Dose: 0 mls/hr Documented by: [id number] Admin: 09/17/21 14:11 Dose: 100 mls/hr Documented by: [id number] Ioversol (Optiray 320 125ml) 116 ml IV ONCE ONE Stop: 09/17/21 13:35 Last Admin: 09/17/21 13:35 Dose: 116 ml Documented by: [id number] Home Medications 5-hydroxytryptophan (5-HTP) 50 mg capsule (Natrol 5-HTP) 50 mg PO HS cap 11/27/20 [History Confirmed 09/17/21] ascorbate calcium (vitamin C) 500 mg tablet 500 mg PO QAM 11/27/20 [History Confirmed 09/17/21] calcium citrate 200 mg (950 mg) tablet 100 mg PO DAILY@1200 tab 11/27/20 [History Confirmed 09/17/21] cholecalciferol (vitamin D3) 125 mcg (5,000 unit) capsule (Dialyvite Vitamin D) 125 mcg PO QAM 11/27/20 [History Confirmed 09/17/21] cranberry 500 mg capsule 500 mg PO DAILY@1200 cap 11/27/20 [History Confirmed 09/17/21] docusate sodium 100 mg capsule (Colace) 100 mg PO TIDM cap 11/27/20 [History Confirmed 09/17/21] turmeric root extract 500 mg capsule 500 mg PO DAILY@1200 11/27/20 [History Confirmed 09/17/21] amoxicillin 500 mg tablet 500 mg PO .COMPLEX #12 tab 03/16/21 [Rx Confirmed 09/17/21] magnesium glycinate 100 mg tablet 400 mg PO QAM tab 04/07/21 [History Confirmed 09/17/21] hydralazine 25 mg tablet 25 mg PO QID #360 tab 06/11/21 [Rx Confirmed 09/17/21] Lactobacillus acidophilus (Acidophilus) 1 tab PO HS 09/17/21 [History Confirmed 09/17/21] apixaban 2.5 mg tablet (Eliquis) 2.5 mg PO BID 09/17/21 [History Confirmed 09/17/21] celecoxib 100 mg capsule (Celebrex) 100 mg PO QDD 09/17/21 [History Confirmed 09/17/21] coQ10 (ubiquinol) 200 mg capsule 400 mg PO QAM 09/17/21 [History Confirmed 09/17/21] cyanocobalamin (vitamin B-12) 1,000 mcg tablet (Vitamin B-12) 500 mcg PO QDD 09/17/21 [History Confirmed 09/17/21] hydrochlorothiazide 25 mg tablet 25 mg PO QAM 09/17/21 [History Confirmed 09/17/21] levothyroxine 100 mcg tablet 100 mcg PO DAILYBB 09/17/21 [History Confirmed 09/17/21] lisinopril 20 mg tablet 20 mg PO BIDM 09/17/21 [History Confirmed 09/17/21] zinc 50 mg tablet 50 mg PO DAILY@1200 09/17/21 [History Confirmed 09/17/21] ECG Additional Comments: Atrial fibrillation Left axis deviation Inferior infarct , age undetermined Anterolateral infarct , age undetermined Abnormal ECG No previous ECGs available Code Status & VTE Plan Code Status CODE: DNR/DNI VTE: SCDs, Eliquis VTE Prophylaxis Plan VTE Prophylaxis will be ordered: Yes Supervising Physician Co-Signing Physician Notes Attending Attestation and Admission Note: Pt seen/examined, chart reviewed, care plan d/w EMILY Chi. I agree w/ the holland components of his documentation. 89yo female with recently diagnosed a.fib, HTN, hypothyroidism, and hyperlipidemia who presents with right hand weakness, difficulty swallowing, and some difficulty walking that started upon wakening this am. Events witnessed by his daughter with whom she lives. 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 Speech was always clear but she was having some challenges finding words. ?right leg weakness as she was having difficulty walking this am. During my assessment she and her daughter report that the right sided symptoms are improved/nearing baseline. PMH/PSH/allergies/meds/sochx/famhx - reviewed vitals - BPs markedly elevated, otherwise HR <200, o2 sats wnl gen - speech clear but some challenges w/ word finding, NAD face/head - no facial droop neck - no JVD heart - irregular, s1 s2, 2/6 systolic murmur loudest at LLSB lungs - mild rales b/l bases abd - soft NT ND BS+ ext - no edema, pulses 2+ b/l neuro - no pronator drift; face symmetric; no dysarthria; handgrip near 5/5 b/l; right hip flexion 4-5/5; right ankle dorsiflexion/plantarflexion 4/5; LLE 5/5 strength labs reviewed imaging reviewed EKG with a.fib A/P: Probable TIA - location - left cerebral cortex. Can't rule out left brainstem. TIA risk factors - a.fib, HTN, carotid web on L, hyperlipidemia. Allow some permissiveness in HTN tonight. Agree with aspirin for now in addition to her Eliquis. Latter dose of 5mg BID is correct as weight is >60kg and Cr is <1.5. MRI Brain and echo. PT, OT, speech; neuro consult. L ICA web - risk factor for stroke, but not a good candidate for intervention of such. Cont asa; cont Eliquis. Ben Ladd MD PG Care Time/CCT Total # of Minutes Spent Total Time Spent with Patient: Total time spent is greater than 50% in coordination of care (as documented) at patient's floor/unit and/or counseling patient: Coding Level of Care Code 33570 Initial Inpt Care Lvl 3 Diagnoses RUE weakness R29.898 Acute UTI (urinary tract infection) N39.0 Atrial fibrillation I48.91 Atrial fibrillation type: unspecified Hypothyroidism E03.9 Hypertension I10 Arthritis M19.90 Balance disorder R26.89 Vitamin D deficiency E55.9 Vitamin B12 deficiency E53.8 Intentional weight loss HLD (hyperlipidemia) E78.5 TIA (transient ischemic attack) G45.9 Carotid aneurysm, 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
[2021-09-17] MEDS ORDERED: hydrALAZINE HCL 25 MG TAB PO STA (16:11)
[2021-09-17] MEDS: PANTOprazole 40 MG TAB PO SCH (16:51)
--- NOTE | 2021-09-17 19:23 | Magnetic Resonance Report ---
MRI OF THE BRAIN WITHOUT CONTRAST CLINICAL HISTORY: Altered mental status. Right hand weakness. Evaluate for cerebrovascular accident. COMPARISON STUDY: Head CT and CTA of the head performed earlier today. TECHNIQUE: Utilizing a 1.5 Stella magnet and dedicated coil, multiplanar, multiecho imaging of the bra in was performed without IV contrast. FINDINGS: This exam is mildly compromised by motion artifact. No definite acute infarct is noted. A 4 mm focus of slight increased signal intensity within the left frontoparietal region on axial diffusi on-weighted sequence image 15 of 21 is noted. This is hypointense on the ADC map. This is probably ar tifactual however a small acute infarct could appear similar. There is no mass effect. There is no he morrhage. A 5 mm T2 hyperintense focus within the left frontoparietal region on axial diffusion-weigh ramakrishna sequence image 14 of 21 reflects T2 shine through. Ventricular system is unremarkable for age. Ba silar cisterns are patent. There are no extra axial collections. There is moderate atrophy. White mat ter T2 hyperintense foci suggest small vessel disease. Fusiform aneurysmal dilatation of the cavernou s and supraclinoid segments of the right internal carotid artery is better depicted on CTA which was performed earlier today. Right carotid terminus measures 9 mm in diameter. IMPRESSION: 1. Equivocal 4 mm acute infarct within the left frontoparietal region. This is likely artifactual how ever a small acute infarct could appear similar. 2. Moderate atrophy and numerous white matter T2 hyperintense foci suggest mild small vessel disease. 3. Fusiform aneurysmal dilatation of the cavernous and supraclinoid segments of the right internal ca rotid artery better depicted on CTA performed earlier today. ACT 112: Negative or not required by law. Electronically signed by: Petr Hanna M.D. 09/17/2021 7:22 PM
[2021-09-17] MEDS ORDERED: ACETAMINOPHEN 325 MG TAB PO PRN (19:39)
[2021-09-17] MEDS ORDERED: hydrALAZINE HCL 25 MG TAB PO PRN (19:39)
[2021-09-17] MEDS ORDERED: PHARMACIST DISCHARGE MED REC CONSULT PRN (19:39)
[2021-09-17] MEDS ORDERED: POLYETHYLENE (MIRALAX) 17 GM PACK PO PRN (19:39)
[2021-09-17] MEDS: DOCUSATE SODIUM 100 MG CAP PO SCH (20:19)
[2021-09-17] MEDS: APIXABAN 5 MG TABLET PO SCH (20:19)
[2021-09-17] MEDS ORDERED: METOPROLOL TARTRATE 1 MG/ML VIAL IV PRN (21:13)
[2021-09-18] MEDS ORDERED: LEVOTHYROXINE SODIUM 100 MCG TABLET PO SCH (06:30)
--- NOTE | 2021-09-18 06:45 | Electrocardiogram Report ---
Test Reason : Blood Pressure : / mmHG Vent. Rate : 071 BPM Atrial Rate : 136 BPM P-R Int : 000 ms QRS Dur : 086 ms QT Int : 370 ms P-R-T Axes : 000 -55 102 degrees QTc Int : 402 ms Atrial fibrillation Left axis deviation Inferior infarct , age undetermined Anterior infarct , age undetermined Nonspecific T wave abnormality Abnormal ECG No previous ECGs available Confirmed by Jacques Price ([id number]) on 09/18/2021 6:45:07 AM Referred By: ARIELA Confirmed By:Jacques Price
[2021-09-18 06:57] LABS: Basophils # (auto) 0.02 K/uL (0-0.2); Basophils % (auto) 0.4 %; Eosinophils # (auto) 0.21 K/uL (0-0.5); Eosinophils % (auto) 3.9 %; Hematocrit (blood only) 41.6 % (37-47); Hemoglobin 13.8 g/dL (12.0-16.0); Immature Granulocytes # (auto) 0.01 K/uL (0.00-0.02); Immature Granulocytes % (auto) 0.2 %; Lymphocytes # (auto) 1.06 K/uL (1.2-3.4); Lymphocytes % (auto) 19.5 %; Mean Corpuscular Hemoglobin 32.6 pg (25-34); Mean Corpuscular Hgb Conc 33.2 g/dL (32-36); Mean Corpuscular Volume 98.3 fL (80-100); Mean Platelet Volume 11.3 fL (7.4-10.4); Monocytes # (auto) 0.68 K/uL (0.11-0.59); Monocytes % (auto) 12.5 %; Neutrophils # (auto) 3.45 K/uL (1.4-6.5); Neutrophils % (auto) 63.5 %; Platelet Count 189 K/uL (130-400); RDW Standard Deviation 50.1 fL (36.4-46.3); Red Blood Count 4.23 M/uL (4.2-5.4); White Blood Count 5.43 K/uL (4.8-10.8)
[2021-09-18 07:34] LABS: BUN Creatinine Ratio 22.3 (10-20); Calcium 10.3 mg/dl (8.5-10.1); Creatinine Clr Calc Pharmacy 40.5 ml/min; Est GFR (African American) 66.6 ml/min; Est GFR (Non-African American) 57.5 ml/min; Potassium 3.7 mmol/L (3.5-5.1)
[2021-09-18 08:13] LABS: Estimated Average Glucose 100 mg/dl; Hemoglobin A1C 5.1 % (4.5-5.6)
[2021-09-18] MEDS: APIXABAN 5 MG TABLET PO SCH (08:24)
[2021-09-18] MEDS: DOCUSATE SODIUM 100 MG CAP PO SCH ×2 (08:25→12:29)
--- NOTE | 2021-09-18 08:49 | Neurology Consultation ---
Date of Consultation September 18, 2021 Assessment & Plan (1) Acute CVA (cerebrovascular accident): (2) Carotid aneurysm, right: (3) Hypertension: (4) Balance disorder: this patient I believe had a very small acute CVA in the left frontoparietal head region September 17 resulting in some temporary right upper extremity weakness. After reviewing the MRI of the brain I believe that the changes are likely real and not artifactual and she did have a small stroke. Etiology of the stroke is likely secondary to hypertensive small vessel ischemic disease. Her blood pressure was markedly elevated and remains high currently. She does have a history of atrial fibrillation on apixaban. MRI shows moderate atrophy in general and moderate to extensive old small vessel ischemic disease consistent with age and condition including hypertension of a longstanding nature. 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 I do not believe this is clinically active. The patient has a urinary tract infection on ceftriaxone. She has incontinence of urine. 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 Recommendations: 1. continue 81 mg aspirin tablet daily 2. Continue apixaban 5 mg twice daily. 3. Control blood pressure as you are doing, aiming for a mean arterial pressure of approximately 100. 4. the patient is not a high dose statin candidate. In fact after discussion the patient does not want to be on a statin despite her cholesterol. Given her advanced age, I think this is reasonable. Her main issue is more blood pressure. 5. Increase activity as able and consider physical, occupational, and speech therapy. 6. Echocardiogram is pending. overall, I spent a total of 60 minutes with this case including review of records, review of MRI films, direct evaluation the patient bedside, and discussion of the case with the patient at bedside, RN at bedside, and Dr. Menard, including differential diagnosis and treatment options. History of Present Illness Reason for Consultation: Patient is an 89-year-old, who I was asked to see at the request of EMILY Lawrence, for neurologic consultation regarding TIA versus stroke. Requesting Physician: EMILY Clancy Attending Physician: Marcel Menard History of Present Illness This patient has a history of atrial fibrillation diagnosed recently on apixaban. In addition, she has a longstanding history of hypertension and arthritis. She has balance issues and falls , with chronic numbness in her hands and feet. Patient woke on the morning of September 17 around 0800 and could not use her right upper extremity. She felt it was very weak and clumsy. She did not notice any new leg weakness on the right and family members did not notice a facial droop. She wondered if her speech was a little more hesitant than usual. when she walked she felt a little more off balance. She arrived to the emergency room September 17 1035, with a temperature of 37.0 pulse 84 regular respiratory rate 16 blood pressure 190/120, and O2 sat of 96% Her neurologic examination revealed that her right arm was back to baseline in strength and she has no deficits on exam with a NIH stroke scale was 0. CBC and Chem profile were unremarkable. Urinalysis was positive for E coli and she was initiated on ceftriaxone. Chest x-ray showed cardiomegaly without pulmonary edema. CT scan of the head showed no acute changes. CT angiography of the head and neck revealed a 9 mm (longitudinal) fusiform aneurysm in the distal right internal carotid artery. There was some stenoses of A2 segments the anterior cerebral arteries and less than 50% stenosis in the carotid bulbs bilaterally. MRI of the brain showed an equivocal 4 mm acute left frontal parietal stroke. There was moderate generalized atrophy and moderate to extensive small vessel ischemic changes of a dull nature. I reviewed the MRI and believe that this small left frontal parietal lesion is probably real. Patient did well with no further issues although her blood pressure was high and required treatment. This morning it is 161/90 and she is afebrile. CBC and Chem profile were largely unremarkable. total cholesterol was 255 and triglycerides 101. Hemoglobin A1c is 5.1 Allergies Allergy/AdvReac Type Severity Reaction Status Date / Time cinnamon Allergy Unknown Verified 09/17/21 14:08 papaya Allergy Unknown Verified 09/17/21 14:08 Home Medications Medication Instructions Recorded Confirmed Type 5-hydroxytryptophan (5-HTP) 50 mg 50 mg PO HS cap 11/27/20 09/17/21 History capsule (Natrol 5-HTP) ascorbate calcium (vitamin C) 500 500 mg PO QAM 11/27/20 09/17/21 History mg tablet calcium citrate 200 mg (950 mg) 100 mg PO DAILY@1200 tab 11/27/20 09/17/21 History tablet cholecalciferol (vitamin D3) 125 125 mcg PO QAM 11/27/20 09/17/21 History mcg (5,000 unit) capsule (Dialyvite Vitamin D) cranberry 500 mg capsule 500 mg PO DAILY@1200 cap 11/27/20 09/17/21 History docusate sodium 100 mg capsule 100 mg PO TIDM cap 11/27/20 09/17/21 History (Colace) turmeric root extract 500 mg 500 mg PO DAILY@1200 11/27/20 09/17/21 History capsule amoxicillin 500 mg tablet 500 mg PO .COMPLEX #12 tab 03/16/21 09/17/21 Rx magnesium glycinate 100 mg tablet 400 mg PO QAM tab 04/07/21 09/17/21 History hydralazine 25 mg tablet 25 mg PO QID #360 tab 06/11/21 09/17/21 Rx Lactobacillus acidophilus 1 tab PO HS 09/17/21 09/17/21 History (Acidophilus) apixaban 2.5 mg tablet (Eliquis) 2.5 mg PO BID 09/17/21 09/17/21 History celecoxib 100 mg capsule (Celebrex) 100 mg PO QDD 09/17/21 09/17/21 History coQ10 (ubiquinol) 200 mg capsule 400 mg PO QAM 09/17/21 09/17/21 History cyanocobalamin (vitamin B-12) 500 mcg PO QDD 09/17/21 09/17/21 History 1,000 mcg tablet (Vitamin B-12) hydrochlorothiazide 25 mg tablet 25 mg PO QAM 09/17/21 09/17/21 History levothyroxine 100 mcg tablet 100 mcg PO DAILYBB 09/17/21 09/17/21 History lisinopril 20 mg tablet 20 mg PO BIDM 09/17/21 09/17/21 History zinc 50 mg tablet 50 mg PO DAILY@1200 09/17/21 09/17/21 History Patient History Medical History Arthritis Atrial fibrillation Balance disorder Fall History of femoral hernia History of umbilical hernia Hypertension Hypomagnesemia Hypothyroidism Vitamin B12 deficiency Vitamin D deficiency Surgical History History of arthroscopic knee surgery History of bilateral knee replacement History of eye surgery History of hysterectomy History of tonsillectomy Family History Father , age 56 of heart disease Myocardial infarction Mother , age 68 of a neurologic condition causing "stiffness" (no details) No problems noted. Denies family history of Ovarian cancer Prostate cancer Breast cancer Colorectal cancer Social History (Updated 09/18/21 @ 08:36 by Jayy Martin MD) Smoking Status: Never smoker Tobacco Type: E-cigarettes / Vaping Second Hand Exposure: No; Do You Dip or Chew Tobacco: No; Tobacco Cessation Education Requested by Patient: No Hx Alcohol Use: No Hx Substance Use: No Communication Ability: Effective Hearing Ability: Hard of Hearing Harness And Bag Inspector Required: No Current Living Situation: Family Current Living Situation Comment: Pt. lives w/ daughter, Lashanda Mijares current occupational status: retired current occupation: retired as an RN age 62 Other Information That Helps Us Care for You: No Feels Safe at Home: Yes Safety Concerns: Feels Safe At This Time Dental Care, Regularly: Yes Physical Activity Frequency: Daily Physical Activity Frequency Comment: walks with walker around the house - cubie Seatbelt Use: always Sunscreen Use: No Assistive Devices: Walker Assistive Devices Comment: Pt. uses personal wheelchair at home, bedrest at this time Review of Systems Constitutional: + weight loss ( has lost 60 lb in the last 1-2 years using a "keto" diet); no fever, no fatigue and no weakness Eyes: no diplopia, no eye pain and no worsening vision Ear, Nose, Mouth, Throat: + hearing loss and + dizziness; no ear pain, no tinnitus, no hoarseness and no dysphagia Respiratory: no cough and no dyspnea Cardiovascular: no chest pain, no palpitations and no lightheadedness Gastrointestinal: no abdominal pain, no nausea and no vomiting Genitourinary: + urinary incontinence; no dysuria and no urinary frequency Musculoskeletal: + neck pain and + joint pain; no back pain, no radicular pain and no myalgia Integumentary: no rash and no lesions Neurologic: + gait abnormality, + numbness and + abnormal speech ( hesitant); no localized weakness, no generalized weakness, no tingling, no tremor(s), no abnormal movements, no headache(s), no confusion and no memory loss Psychiatric: no depression, no irritability, no anxiety, no difficulty concentrating, no confusion and no hallucinations Endocrine: no fatigue and no flushing Hematologic / Lymphatic: no easy bleeding and no easy bruising Allergy / Immunological: no urticaria and no problem reported Exam (Neuro) Physical Exam: The patient is right-handed. The patient is awake, alert, and attentive. Speech is normal without any aphasia or dysarthria. The patient can name objects, repeat phrases, and has normal spontaneous speech. Mentation and thought processes are intact, with orientation to person, place and time, and normal fund of knowledge. Attention and concentration are normal. Mood and affect are normal and appropriate. General appearance and grooming are normal. Short and long-term memory are reasonable to conversation although she likely has some mild memory problems for her age. Pupils are 3 mm bilaterally and reactive to light. Extraocular eye muscles are intact without nystagmus. Visual acuity and visual hercules seem normal grossly to confrontation. There are no deficits to sensation in the face in all 3 distributions of the fifth cranial nerve bilaterally. Corneal reflexes are positive bilaterally. Facial strength and symmetry was normal bilaterally. Hearing is mildly decreased bilaterally. Palate moves well without asymmetry. There is normal sternocleidomastoid and trapezius (shoulder shrug) strength bilaterally. Tongue is midline with good strength bilaterally. Neck has a decreased range of motion with some discomfort. gait was not tested but stance standing by the bedside with eyes open was slightly wide-based and unstable requiring assistance. She normally walks with walker. Stance sitting with her legs dangling at the edge of the bed was reasonable With outstretched arms there is no drift. There are no resting, postural, or action tremors. There is no ataxia with finger to nose testing. There is good facility in the hands. No other abnormal involuntary movements are noted. Motor strength is 5/5 diffusely in the arms bilaterally including deltoids, biceps, triceps, brachioradialis, wrist flexors and extensors, senior business process analyst, and intrinsic hand muscles. Motor strength is 5/5 diffusely in the legs bilaterally including hip flexors, quadriceps, hamstrings, gastrocnemius, tibialis anterior, tibialis posterior, and Peroneii muscles. Toe extensors are normal and there is good bulk in the extensor digitorum brevis muscles bilaterally. The limbs have good tone without rigidity or spasticity. There is no atrophy noted in the muscles. Muscle bulk is normal, there is no tenderness to palpation, no myotonia to percussion, and no fasciculations seen. Sensory examination reveals some decreased sensation pin and touch distally throughout. Reflexes are 2/4 in the biceps, triceps, and quadriceps tendons bilaterally. Brachioradialis tendon reflexes were absent on the right and 1/4 on the left. Achilles tendon reflexes were absent bilaterally. There is no clonus bilaterally. Toes are downgoing with plantar stimulation bilaterally. Peripheral pulses are present and of normal quality distally in all 4 limbs. There is no peripheral edema noted in the limbs. Results & Data ([facility]) Vital Signs (Past 12 Hours) Vital Signs Temp Pulse Pulse Resp BP BP BP 09/18/21 07:02 36.7 C 85 18 161/95 H 09/18/21 07:00 73 09/18/21 03:22 36.8 C 79 16 151/92 H 09/17/21 23:23 36.6 C 53 L 18 146/92 H 09/17/21 22:19 61 09/17/21 22:08 76 130/87 09/17/21 21:30 104 H 175/116 H 09/17/21 21:27 18 175/116 H Pulse Ox 09/18/21 07:02 94 09/18/21 07:00 09/18/21 03:22 96 09/17/21 23:23 95 09/17/21 22:19 09/17/21 22:08 09/17/21 21:30 09/17/21 21:27 95 PG Care Time/CCT Total # of Minutes Spent Total Time Spent with Patient: Total time spent is greater than 50% in coordination of care (as documented) at patient's floor/unit and/or counseling patient: Coding Level of Care Code 77052 Initial Inpt Care Lvl 3 Diagnoses Acute CVA (cerebrovascular accident) I63.9 Carotid aneurysm, right I72.0 Hypertension I10 Balance disorder R26.89 Time Spent (min) 60
[2021-09-18] MEDS ORDERED: ASPIRIN 81 MG ECTAB PO SCH (09:00)
--- NOTE | 2021-09-18 10:57 | XCELERA ---
[id number]
[2021-09-18] MEDS: PANTOprazole 40 MG TAB PO SCH (12:30)
[2021-09-18] MEDS ORDERED: STROKE PATIENT DISCHARGE STA (13:38)
[2021-09-18] MEDS ORDERED: cefTRIAXone SODIUM 1,000 MG in DEXTROSE 5% 50 ML IV SCH (14:00)
--- NOTE | 2021-09-18 14:28 | Pharmacy Report ---
Pharmacist Stroke Counseling - Date of Service September 18, 2021 - Scope: Pharmacy has been consulted to provide medication discharge counseling for this patient admitted with acute small CVA as per the Pharmacist Discharge Counseling for Stroke Patients Protocol. - Medications on Discharge: Home Medications Medication Instructions Recorded Confirmed 5-hydroxytryptophan (5-HTP) 50 mg 50 mg PO HS cap 11/27/20 09/17/21 capsule (Natrol 5-HTP) ascorbate calcium (vitamin C) 500 500 mg PO QAM 11/27/20 09/17/21 mg tablet calcium citrate 200 mg (950 mg) 100 mg PO DAILY@1200 tab 11/27/20 09/17/21 tablet cholecalciferol (vitamin D3) 125 125 mcg PO QAM 11/27/20 09/17/21 mcg (5,000 unit) capsule (Dialyvite Vitamin D) cranberry 500 mg capsule 500 mg PO DAILY@1200 cap 11/27/20 09/17/21 docusate sodium 100 mg capsule 100 mg PO TIDM cap 11/27/20 09/17/21 (Colace) turmeric root extract 500 mg 500 mg PO DAILY@1200 11/27/20 09/17/21 capsule magnesium glycinate 100 mg tablet 400 mg PO QAM tab 04/07/21 09/17/21 Lactobacillus acidophilus 1 tab PO HS 09/17/21 09/17/21 (Acidophilus) apixaban 2.5 mg tablet (Eliquis) 2.5 mg PO BID 09/17/21 09/17/21 coQ10 (ubiquinol) 200 mg capsule 400 mg PO QAM 09/17/21 09/17/21 cyanocobalamin (vitamin B-12) 500 mcg PO QDD 09/17/21 09/17/21 1,000 mcg tablet (Vitamin B-12) hydrochlorothiazide 25 mg tablet 25 mg PO QAM 09/17/21 09/17/21 levothyroxine 100 mcg tablet 100 mcg PO DAILYBB 09/17/21 09/17/21 lisinopril 20 mg tablet 20 mg PO BIDM 09/17/21 09/17/21 zinc 50 mg tablet 50 mg PO DAILY@1200 09/17/21 09/17/21 New Rx's Medication Instructions Recorded amoxicillin 500 mg tablet 500 mg PO .COMPLEX #12 tab 03/16/21 hydralazine 25 mg tablet 25 mg PO QID #360 tab 06/11/21 acetaminophen 325 mg tablet 650 mg PO Q4H PRN #30 tab 09/18/21 aspirin 81 mg tablet,delayed 81 mg PO QAM #30 tab 09/18/21 release - Action: The above medications, specifically ones for stroke treatment/prophylaxis, have been reviewed in detail with the patient and/or patient communications representative(s) prior to discharge. This includes indication, common adverse reactions, drug interactions, and medication administration. Medication counseling has been employed using the teach-back method to ensure understanding. - Outcome: The patient and/or patient communications representative(s) have demonstrated understanding of the medications. Additional comments: * Spoke with patient's daughter, Lashanda. [facility] She understands her mother's HTN is not well controlled and they are currently trying to get her BP lower. * Lashanda had questions about her mother's CVA; read off the Neurology note to her and advised her to speak with the provider to answer her questions. * Informed her that aspirin 81mg daily was being added on. She is aware that this can be purchased OTC. * Explained that it appears Celebrex is being D/C'd due to concerns for incr' bleeding risk and worsening HTN. Daughter does not agree with this and feels that Tylenol will not be effective. Advised them to f/u with outside provider after discharge. She reports [facility] omepraz[facility] for GI ppx. Eliquis dose is actually 5mg BID (was incr' recently). Again told daughter that if anything in the discharge medication list seems incorrect, she should f/u with outside provider to clarify. Thank you for allowing pharmacy to be involved in the care of this patient. Please call [phone] with any additional questions
--- NOTE | 2021-09-18 23:13 | Electrocardiogram Report ---
Test Reason : Blood Pressure : / mmHG Vent. Rate : 096 BPM Atrial Rate : 108 BPM P-R Int : 000 ms QRS Dur : 094 ms QT Int : 342 ms P-R-T Axes : 000 -57 102 degrees QTc Int : 432 ms Atrial fibrillation Left axis deviation Inferior infarct Anterior infarct Nonspecific T wave abnormality Abnormal ECG When compared with ECG of 17-SEP-2021 10:58, No significant change was found Confirmed by Jacques Price ([id number]) on 09/18/2021 11:12:41 PM Referred By: [facility] Confirmed By:Jacques Price
--- NOTE | 2021-09-19 16:26 | Discharge Summary ---
Date of Service September 18, 2021 Admission HPI Per Admitting Provider [id number] YOF with past medical history of: HTN, HLD (not on statin), Bilateral DVTs following knee surgery, AFIB (on Eliquis 5mg), Hypothyroidism, B12 deficiency, vitamin D, Deficiency, OA, DJD neck, hearing loss. [employer]- [facility] Patient comes in to the emergency room accompanied by her daughter, who lulu lives with for complaints of right sided weakness, and apraxia of the right arm and leg. Patient reports she felt fine when she went to bed last night, however upon awakening this morning, she was noted to have an increase in her balance instability and decrease coordination of her right arm. She was able to get her-self dress, but reported to her daughter that she was having difficulty grasping her walker with her right hand. She then went in to get breakfast and her medications, when her daughter came back in a few minutes later- she was noted to have yogurt all over her face and clothes and told her daughter that she was having more trouble using her arm and didn't' know what she was doing. In the EMD the patient had routine labs done, CXR, ECG, CT of the head and CTA of the head and neck. These were negative for large acute event but notable for fusiform aneurysms. She also had a UA done that was positive for bacteria and nitrite positive. Her symptoms of her arm weakness and apraxia are improved since this morning. She does report decrease in sensation in the right upper arm up to her shoulder level, but can not tell if this is worse. NIHSS currently- 1. Patient was not a thrombolytic candidate secondary to time last known well. Patient will be admitted to continue workup of CVA vs. TIA and treatment of her UTI. She is newly diagnosed with atrial fibrillation within the past month and has had her Eliquis increased to 5mg PO BID. Patient has received her COVID vaccine and her COVID test on admission is: NEGATIVE Principal Diagnosis Acute ischemic CVA Discharge Exam General: awake, alert, no apparent distress Head: Normocephalic, atraumatic ENT: no pharyngeal exudate, mucous membranes moist Neuro: PERRL, EOMI, AAO x 3, speech clear and appropriate, strength intact bilaterally 5/5, sensation intact and equal all extremities and dermatomes, no pronator drift, decrease sensation to right upper arm, no ataxia, no neglect, no visual field cuts. Chest: equal rise and fall of the chest, no accessory muscle use, no heaves or thrills, Clear to auscultation, on room air, Cardiac: irregular rate and rhythm, telemetry reviewed, skin warm dry, cap refill <3 seconds, peripheral pulses +2 no JVD, no murmur, no edema GI: NABS x 4 quadrants, soft, nontender to palpation, no rebound, guarding or tenderness : Spontaneously voiding, increase in frequency and incontinence Extremities: Normal inspection, no peripheral edema or erythema, calfs nontender to palpation Psych: Normal mood and affect Skin: no rash or erythema Discharge Data Allergies Allergy/AdvReac Type Severity Reaction Status Date / Time cinnamon Allergy Unknown Verified 09/17/21 14:08 papaya Allergy Unknown Verified 09/17/21 14:08 Consultations 09/17/21 14:32 ED Decision to Admit Stat 09/17/21 19:39 Consult Neurology Routine Ordered Studies 09/17/21 10:44 CT angio head w con Stat CT angio neck with con Stat CT head/brain wo con Stat 09/17/21 17:12 MR brain wo con Routine Hospital Course (1) Acute CVA (cerebrovascular accident): Appreciate input from Neuro: (bold) this patient I believe had a very small acute CVA in the left frontoparietal head region September 17 resulting in some temporary right upper extremity weakness. After reviewing the MRI of the brain I believe that the changes are likely real and not artifactual and she did have a small stroke. Etiology of the stroke is likely secondary to hypertensive small vessel ischemic disease. Her blood pressure was markedly elevated and remains high currently. She does have a history of atrial fibrillation on apixaban. MRI shows moderate atrophy in general and moderate to extensive old small vessel ischemic disease consistent with age and condition including hypertension of a longstanding nature. 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 I do not believe this is clinically active. The patient has a urinary tract infection on ceftriaxone. She has incontinence of urine. 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 Recommendations: 1. continue 81 mg aspirin tablet daily 2. Continue apixaban 5 mg twice daily. 3. Control blood pressure as you are doing, aiming for a mean arterial pressure of approximately 100. 4. the patient is not a high dose statin candidate. In fact after discussion t he patient does not want to be on a statin despite her cholesterol. Given her advanced age, I think this is reasonable. Her main issue is more blood pressure. 5. Increase activity as able and consider physical, occupational, and speech therapy. (2) RUE weakness: Right upper arm weakness with apraxia and confusion from above. symptoms resolved. - UTI ruled out. This is asymptomatic bacteruria as patient has no symptoms. D/W daughter (3) TIA (transient ischemic attack): ruled out as this is a TIA. 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 No saccular aneurysm or aneurysm rupture. 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 Total Time Total Time Spent Total Time Spent (In Minutes): 32 Discharge Plan Discharge Items Patient Disposition: Home - Self-Care Reason For Visit: R/C CVA, UTI Discharge Diagnosis: R/C CVA, UTI Activity: Resume your previous activity Non-emergency contact: Primary Care Provider Call non-emergency contact if: you have any medication questions [facility]Primary Care Provider[facility] - (PLEASE CALL YOUR PRIMARY CARE PROVIDER TO SCHEDULE A DISCHARGE FOLLOW-UP APPOINTMENT WITHIN 7-10 DAYS.) Diet: Heart Healthy Addtl Attending Provider Instructions: Risk Factors for Stroke: You can reduce your chances of stroke by working with your medical provider to adopt a healthy lifestyle. Some specific ways to lower your chance of stroke are: * If you are a smoker, now is the time to stop smoking cigarettes * If you are diabetic, improve the control of your blood sugars * Avoid excessive amounts of alcohol * Control high blood pressure * Lose weight if you are overweight * Be sure to lead an active lifestyle * Eat a healthy diet low in salt, cholesterol and fat You should know about other risk factors for stroke that you are unable to control. These include: * Age 55 years or older * Male gender * Certain racial groups: , or / * Family History of Stroke, Mini stroke or Heart Attack * Sickle Cell Disease Follow Up: It is important for you to keep your follow up appointments with your medical provider. Who to Call and When: Medical Emergencies: Call 911 immediately if you experience any of the following warning signs and symptoms of Stroke: * Sudden numbness or weakness of the face, arm or leg, especially on one side of the body * Sudden confusion, trouble speaking or understanding * Sudden trouble seeing in one or both eyes * Sudden trouble walking, dizziness, loss of balance or coordination * Sudden severe headache with no cause Do not delay calling 911 if you experience any warning signs or symptoms of a stroke. Delay in seeking medical attention may affect what treatments can be given to you. . Pending Studies at Discharge: No Stand-Alone Forms: Medications to Prevent Stroke, [employer], Smoking Cessation Medications and DC Order Prescriptions: New acetaminophen 325 mg Tablet 650 mg PO Q4H PRN (Reason: pain) Qty: 30 RF: 0 aspirin 81 mg Tablet,Delayed Release (Dr/Ec) 81 mg PO QAM Qty: 30 RF: 0 cephalexin 500 mg capsule 500 mg PO BID 5 Days Qty: 10 RF: 0 Continued amoxicillin 500 mg tablet 500 mg PO .COMPLEX Qty: 12 RF: 1 hydralazine 25 mg tablet 25 mg PO QID Qty: 360 RF: 1 calcium citrate 200 mg (950 mg) tablet 100 mg PO DAILY@1200 RF: 0 cranberry 500 mg capsule 500 mg PO DAILY@1200 RF: 0 docusate sodium [Colace] 100 mg capsule 100 mg PO TIDM RF: 0 turmeric root extract 500 mg capsule 500 mg PO DAILY@1200 RF: 0 ascorbate calcium (vitamin C) 500 mg tablet 500 mg PO QAM RF: 0 cholecalciferol (vitamin D3) [Dialyvite Vitamin D] 125 mcg (5,000 unit) capsule 125 mcg PO QAM RF: 0 Natrol 5-HTP 50 mg capsule 50 mg PO HS RF: 0 magnesium glycinate 100 mg tablet 400 mg PO QAM RF: 0 cyanocobalamin (vitamin B-12) [Vitamin B-12] 1,000 mcg Tablet 500 mcg PO QDD RF: 0 zinc 50 mg Tablet 50 mg PO DAILY@1200 RF: 0 Acidophilus Tablet,Chewable 1 tab PO HS RF: 0 coQ10 (ubiquinol) 200 mg Capsule 400 mg PO QAM RF: 0 lisinopril 20 mg tablet 20 mg PO BIDM RF: 0 levothyroxine 100 mcg tablet 100 mcg PO DAILYBB RF: 0 hydrochlorothiazide 25 mg tablet 25 mg PO QAM RF: 0 Eliquis 2.5 mg tablet 2.5 mg PO BID RF: 0 Discontinued celecoxib [Celebrex] 100 mg capsule 100 mg PO QDD RF: 0 Discharge Orders: Discharge Order (Routine); Ordered 09/18/21 Ordered By: Marcel Menard Admission Data Admit Date/Time: 09/17/21 15:24 Attending Provider: Marcel Menard Admit Provider: Ben Ladd Primary Care Provider: [facility] Other Providers: Ben Ladd ; Jamar Weber Other Interventions: Discharge Summary Assessment (RN) Last Done: 09/18/21 14:35 Coding Level of Care Code D/C DAY MANAGEMENT >30 MINS Diagnoses RUE weakness R29.898 TIA (transient ischemic attack) G45.9 Carotid aneurysm, right I72.0 HLD (hyperlipidemia) E78.5 Acute UTI (urinary tract infection) N39.0 Atrial fibrillation I48.91 Atrial fibrillation type: unspecified Hypothyroidism E03.9 Hypertension I10 Arthritis M19.90 Balance disorder R26.89 Vitamin D deficiency E55.9 Vitamin B12 deficiency E53.8 Intentional weight loss Carotid artery disorder I77.9 Acute CVA (cerebrovascular accident) I63.9
== END 2021-09-18 16:23 | disposition home or self-care (01) | DRG 65 ==
LOC: ED 10:20 → 2N 15:24 → SUATTDRO 15:24 → 2N 18:07

== ENCOUNTER 2021-10-01 17:58 | Inpatient (IN) ==
[2021-10-01] MEDS ORDERED: SODIUM CHLORIDE 0.9% 1000ML 1,000 ML IV SCH (19:00)
--- NOTE | 2021-10-01 19:05 | Emergency Department Note ---
Impression & Plan AMS (altered mental status), Generalized weakness, Acute UTI (urinary tract infection) ED Provider Note INFORMANT: Patient and daughter ED PROVIDER(S): Dominick Aden MD CHIEF COMPLAINT: Urinary symptoms PLAN: Disposition: Admitted Condition: Good Outpatient prescription management: none Referral: None MEDICAL DECISION MAKING: Patient presented to the emergency department because of weakness and confusion. She has a history of UTI. She was started on a biotics as an outpatient but continued to get worse. She underwent head CT imaging which was negative. Her blood work was unremarkable. Urinalysis does have some suggestion of infection. Unfortunately her clinic is not open at this point time to get culture results. I do suspect it may be she has some resistance to her oral antibiotics. The patient was given a dose of IV Rocephin. After talking with the patient's d sophiehter the patient would be best served by staying in the hospital. Consultation was made with Dr. Rangel Boyd of the [facility] service. Patient was evaluated in the ER for further management. Triage Nursing notes reviewed and agree them. Vital Signs: reviewed and remarkable for no significant abnormalities Differential diagnosis: Infection, dehydration, metabolic abnormality, hypo/hyperglycemia, electrolyte disturbance, anemia, hypoxia, cardiac sources, intracerebral event, toxicologic, neurologic, as well as other pathologies. Diagnostics interpreted by me: ECG: Twelve-lead ECG reveals atrial fibrillation at 73 bpm. Anterolateral Q waves are present. Inferior T wave version. Nonspecific ST abnormality. Cardiac Monitoring: Cardiac monitoring ordered by me: The patient was placed on continuous cardiac monitoring and observed. It revealed A. fib at 82 bpm. Imaging studies: Head CT: A noncontrast CT scan of the head was performed and was negative for tumor, fracture, intracranial hemorrhage, or other acute pathology. Chest x-ray. Findings: A chest x-ray was performed and revealed no pneu mothorax, effusion, infiltrate, pulmonary edema, free air under the diaphragm, or wide mediastinum. Impression: No acute disease. HPI: The patient is a 89 year old female who presents to the Emergency Room with complaints of urinary symptoms. This started this and is noted to be frequency and urgency. The patient also notes the following associated symptoms, feeling generally weak. The patient has been started on oral antibiotics as an outpatient relieving factors. Current pain is rated as 0/10. Patient's daughter arrives and notes that she has had increased confusion. That is a concern as she has had urinary tract infections before and because of this episode had a urine culture done at the [place] and was started on oral antibiotics. Patient daughter notes over the recent days that she is becoming more weak and is very difficult to take care of. She did have an accidental fall this week and was seen in the ER. Head CT imaging was negative. The patient is anticoagulated. Pt denies LOC, headache, fevers, chills, diaphoresis, visual changes, neck pain, chest pain, breathing difficulties, nausea, vomiting, abdominal pain, back pain, melena, hematochezia, numbness, lymphadenopathy, rash, or other complaints. ROS: See above HPI for pertinent positives & negatives. A total of 10 systems reviewed and were otherwise negative. PAST MEDICAL HISTORY:See Below , TIA, CVA PAST SURGICAL HISTORY:See Below, FAMILY HISTORY:See Below SOCIAL HISTORY:See Below, lives with daughter HOME MEDICATIONS:See Below ALLERGIES:See Below VITALS:See Below PHYSICAL EXAMINATION: GENERAL: Awake, but tired-appearing, in no distress HENT: Normocephalic, atraumatic. Oropharynx unremarkable. EYES: Normal conjunctiva. Sclera non-icteric. NECK: Inspection normal. Non-tender. Supple. No nuchal rigidity. FROM. No masses. RESPIRATORY: Clear to auscultation. No wheezes. No rales. Normal respiratory effort. CARDIAC: Normal rate. Normal rhythm. No murmurs. No rubs. Extremities warm and well perfused. Pulses equal. No JVD. GI: Soft, non-distended. No tenderness to palpation. No rebound or guarding. No masses. RECTAL: Deferred. MUSCULOSKELETAL: Atraumatic. Chest examination reveals no tenderness. The back is symmetrical on inspection without obvious abnormality. There is no CVA tenderness to palpation. No joint edema. LOWER EXTREMITIES: Calves are equal size bilaterally and non-tender. Trace edema. No discoloration. NEURO: Mildly sensorium. No focal sensory deficits noted. Generally weak in the lower extremities. SKIN: No rash or jaundice noted. Dominick Aden MD Past Med/Surg History Medical History Arthritis Atrial fibrillation Balance disorder Fall History of femoral hernia History of umbilical hernia Hypertension Hypomagnesemia Hypothyroidism Vitamin B12 deficiency Vitamin D deficiency Surgical History History of arthroscopic knee surgery History of bilateral knee replacement History of eye surgery History of hysterectomy History of tonsillectomy Family History Father , age 56 of heart disease Myocardial infarction Mother , age 68 of a neurologic condition causing "stiffness" (no details) No problems noted. 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 lives w/ daughter, Lashanda Mijares current occupational status: retired current occupation: retired as an RN age 62 Feels Safe at Home: Yes Dental Care, Regularly: Yes Physical Activity Frequency: Daily Physical Activity Frequency Comment: walks with walker around the house - [employer] Seatbelt Use: always Sunscreen Use: No Assistive Devices: Walker Allergies Allergies Allergy/AdvReac Type Severity Reaction Status Date / Time cinnamon Allergy Unknown Unknown Verified 10/01/21 19:15 papaya Allergy Unknown Unknown Verified 10/01/21 19:15 Home Meds Home Medications Medication Instructions Recorded Confirmed cholecalciferol (vitamin D3) 125 125 mcg PO QAM 11/27/20 10/01/21 mcg (5,000 unit) capsule (Dialyvite Vitamin D) cranberry 500 mg capsule 500 mg PO QDL cap 11/27/20 10/01/21 docusate sodium 100 mg capsule 100 mg PO TIDM cap 11/27/20 10/01/21 (Colace) magnesium glycinate 100 mg tablet 400 mg PO QAM tab 04/07/21 10/01/21 Lactobacillus acidophilus 1 tab PO HS 09/17/21 10/01/21 (Acidophilus) apixaban 2.5 mg tablet (Eliquis) 5 mg PO BID 09/17/21 10/01/21 coQ10 (ubiquinol) 200 mg capsule 400 mg PO QAM 09/17/21 10/01/21 cyanocobalamin (vitamin B-12) 500 mcg PO QDD 09/17/21 10/01/21 1,000 mcg tablet (Vitamin B-12) hydrochlorothiazide 25 mg tablet 25 mg PO QAM 09/17/21 10/01/21 levothyroxine 100 mcg tablet 100 mcg PO DAILYBB 09/17/21 10/01/21 lisinopril 20 mg tablet 20 mg PO AMHS 09/17/21 10/01/21 zinc 50 mg tablet 50 mg PO QDL 09/17/21 10/01/21 ascorbic acid (vitamin C) 500 mg 500 mg PO QAM 09/29/21 10/01/21 tablet (Vitamin C) aspirin 81 mg tablet,delayed 81 mg PO QDL 09/29/21 10/01/21 release cefuroxime axetil 250 mg tablet 250 mg PO BID 09/29/21 10/01/21 celecoxib 100 mg capsule 100 mg PO QDD 09/29/21 10/01/21 omeprazole 20 mg capsule,delayed 20 mg PO QDL 09/29/21 10/01/21 release 5-hydroxytryptophan (5-HTP) 50 mg 100 mg PO HS 10/01/21 10/01/21 capsule (Natrol 5-HTP) calcium citrate 500 mg (2,376 mg) 500 mg PO DAILYBL 10/01/21 10/01/21 effervescent tablet hydralazine 50 mg tablet 50 mg PO QID 10/01/21 10/01/21 Results & Data (ED) Vital Signs Vital Signs - 24 hr 10/01/21 18:10 10/01/21 18:16 10/01/21 20:10 Pulse Rate [Right Finger] 72 82 Pulse Rhythm [Right Finger] Regular Regular Respiratory Rate 18 18 Respiratory Effort / Characteristics Non-Labored Non-Labored Spontaneous Respiratory Depth Normal Normal Respiratory Pattern Regular Blood Pressure [Right Arm] 164/103 H 190/90 H Blood Pressure Mean [Right Arm] 123 123 Blood Pressure Position [Right Arm] Sitting Pulse Oximetry 97 97 Oxygen Delivery Method Room Air Room Air Sepsis Recent Fever Within 48 Hours No Sepsis New/Unexplained Change in Mental Status Yes Sepsis Action Taken by Nursing No Action Required 10/01/21 21:32 Pulse Rate [Right Finger] 82 Pulse Rhythm [Right Finger] Regular Respiratory Rate 18 Respiratory Effort / Characteristics Non-Labored Spontaneous Respiratory Depth Normal Respiratory Pattern Regular Blood Pressure [Right Arm] 138/99 Blood Pressure Mean [Right Arm] 112 Blood Pressure Position [Right Arm] Lying Pulse Oximetry 96 Oxygen Delivery Method Room Air Sepsis Recent Fever Within 48 Hours Sepsis New/Unexplained Change in Mental Status Sepsis Action Taken by Nursing Laboratory Data Result diagrams: 10/01/21 19:23 10/01/21 21:11 Lab Results 10/01/21 10/01/21 10/01/21 Range/Units 19:23 19:23 19:45 WBC 6.28 (4.8-10.8) K/uL RBC 4.37 (4.2-5.4) M/uL Hgb 14.4 (12.0-16.0) g/dL Hct 43.4 (37-47) % MCV 99.3 (80-100) fL MCH 33.0 (25-34) pg MCHC 33.2 (32-36) g/dL RDW Std Deviation 50.9 H (36.4-46.3) fL RDW Coeff of Evaristo 14.0 (11.5-14.5) % Plt Count 191 (130-400) K/uL MPV 11.1 H (7.4-10.4) fL Immature Gran % (Auto) 0.2 % Neut % (Auto) 63.8 % Lymph % (Auto) 22.1 % [place] % (Auto) 10.4 % Eos % (Auto) 3.2 % Baso % (Auto) 0.3 % Neut # (Auto) 4.01 (1.4-6.5) K/uL Lymph # (Auto) 1.39 (1.2-3.4) K/uL [place] # (Auto) 0.65 H (0.11-0.59) K/uL Eos # (Auto) 0.20 (0-0.5) K/uL Baso # (Auto) 0.02 (0-0.2) K/uL Immature Gran # (Auto) 0.01 (0.00-0.02) K/uL Sodium 136 (136-145) mmol/L Potassium (3.5-5.1) mmol/L Chloride 106 (98-107) mmol/L Carbon Dioxide 23 (21-32) mmol/L Anion Gap 7.0 (3-11) BUN 26 H (7-18) mg/dl Creatinine 0.80 (0.6-1.2) mg/dl Est Cr Clr Drug Dosing Not Reportable Est GFR ( Amer) 75.8 ml/min Est GFR (Non-Af Amer) 65.4 ml/min BUN/Creatinine Ratio 32.7 H (10-20) Glucose 86 (70-99) mg/dl Calcium 9.4 (8.5-10.1) mg/dl Magnesium (1.8-2.4) mg/dl Total Bilirubin 0.4 (0.2-1) mg/dl AST (15-37) U/L ALT 19 (12-78) U/L Alkaline Phosphatase 66 (45-117) U/L Troponin I 0.022 (0-0.045) ng/ml Total Protein 6.9 (6.4-8.2) gm/dl Albumin 2.9 L (3.4-5.0) gm/dl Globulin 4.0 (2.5-4.0) gm/dl Albumin/Globulin Ratio 0.7 L (0.9-2) TSH 4.470 (0.300-4.500) uIu/ml Specimen Hemolysis Urine Color Yellow Urine Appearance Clear (Clear) Urine pH 6.5 (4.5-7.5) Ur Specific [place] 1.009 (1.000-1.030) Urine Protein 1+ H (Negative) Urine Glucose (UA) Negative (Negative) Urine Ketones Negative (Negative) Urine Blood Negative (Negative) Urine Nitrite Negative (Negative) Urine Bilirubin Negative (Negative) Urine Urobilinogen Negative (Negative) Ur Leukocyte Esterase Trace H (Negative) Urine WBC (Auto) >30 H (0-5) /hpf Urine RBC (Auto) 0-4 (0-4) /hpf U Hyaline Cast (Auto) 0 (0-5) /lpf U Epithel Cells (Auto) 0-5 (0-5) /lpf Urine Bacteria (Auto) 2+ H (Negative) SARS-CoV-2, RNA, NAAT (NEGATIVE) 10/01/21 10/01/21 Range/Units 21:00 21:11 WBC (4.8-10.8) K/uL RBC (4.2-5.4) M/uL Hgb (12.0-16.0) g/dL Hct (37-47) % MCV (80-100) fL MCH (25-34) pg MCHC (32-36) g/dL RDW Std Deviation (36.4-46.3) fL RDW Coeff of Evaristo (11.5-14.5) % Plt Count (130-400) K/uL MPV (7.4-10.4) fL Immature Gran % (Auto) % Neut % (Auto) % Lymph % (Auto) % [place] % (Auto) % Eos % (Auto) % Baso % (Auto) % Neut # (Auto) (1.4-6.5) K/uL Lymph # (Auto) (1.2-3.4) K/uL [place] # (Auto) (0.11-0.59) K/uL Eos # (Auto) (0-0.5) K/uL Baso # (Auto) (0-0.2) K/uL Immature Gran # (Auto) (0.00-0.02) K/uL Sodium (136-145) mmol/L Potassium 4.2 (3.5-5.1) mmol/L Chloride (98-107) mmol/L Carbon Dioxide (21-32) mmol/L Anion Gap (3-11) BUN (7-18) mg/dl Creatinine (0.6-1.2) mg/dl Est Cr Clr Drug Dosing Est GFR ( Amer) ml/min Est GFR (Non-Af Amer) ml/min BUN/Creatinine Ratio (10-20) Glucose (70-99) mg/dl Calcium (8.5-10.1) mg/dl Magnesium 1.9 (1.8-2.4) mg/dl Total Bilirubin (0.2-1) mg/dl AST 21 (15-37) U/L ALT (12-78) U/L Alkaline Phosphatase (45-117) U/L Troponin I (0-0.045) ng/ml Total Protein (6.4-8.2) gm/dl Albumin (3.4-5.0) gm/dl Globulin (2.5-4.0) gm/dl Albumin/Globulin Ratio (0.9-2) TSH (0.300-4.500) uIu/ml Specimen Hemolysis Urine Color Urine Appearance (Clear) Urine pH (4.5-7.5) Ur Specific [place] (1.000-1.030) Urine Protein (Negative) Urine Glucose (UA) (Negative) Urine Ketones (Negative) Urine Blood (Negative) Urine Nitrite (Negative) Urine Bilirubin (Negative) Urine Urobilinogen (Negative) Ur Leukocyte Esterase (Negative) Urine WBC (Auto) (0-5) /hpf Urine RBC (Auto) (0-4) /hpf U Hyaline Cast (Auto) (0-5) /lpf U Epithel Cells (Auto) (0-5) /lpf Urine Bacteria (Auto) (Negative) SARS-CoV-2, RNA, NAAT NEGATIVE (NEGATIVE) Administered Medications Sodium Chloride (Nss 1000ml) 1,000 mls @ 125 mls/hr IV .Q8H DEEPA Stop: 10/02/21 02:59 Last Admin: 10/01/21 20:00 Dose: 125 mls/hr Documented by: [id number] Discontinued Medications Ceftriaxone Sodium (Rocephin) 1,000 mg in 50 mls @ 100 mls/hr IV NOW STA Stop: 10/01/21 21:26 Last Infusion: 10/01/21 22:14 Dose: 0 mls/hr Documented by: [id number] Admin: 10/01/21 21:31 Dose: 100 mls/hr Documented by: [id number] Imaging Data Radiologist's Impression: Head CT 10/01/21 18:46 CT head/brain wo con CLINICAL HISTORY: 89 years-old Female with confusion, recent head trauma, on eliquis. Acutely altered mental status with recent head trauma TECHNIQUE: Multiple axial CT images of the head were obtained without contrast. A dose lowering technique was utilized adhering to the principles of ALARA. CT DOSE: 614.27 mGy.cm COMPARISON: Head CT and CTA head 09/17/2021 FINDINGS: No acute intracranial hemorrhage, midline shift, intracranial mass, hydrocephalus, territorial ischemia or abnormal extra-axial collection. Age- related involutional changes. White matter hypodensities suggest chronic microvascular ischemic disease. Unchanged fusiform dilation of the cavernous and supraclinoid segments of the right internal carotid artery. The calvarium is intact. 1.3 cm right frontal scalp hematoma. The paranasal sinuses, mastoid air cells, and middle ear cavities are clear. IMPRESSION: 1. No acute intracranial abnormality or calvarial fracture. 2. Small right frontal scalp hematoma. ACT 112: Negative or not required by law. The above report was generated using voice recognition software. It may contain grammatical, syntax or spelling errors. Electronically signed by: Chester Bowman M.D. 10/01/2021 8:14 PM Chest X-Ray 10/01/21 18:47 XR chest 1V portable HISTORY: 89 years-old Female weakness acute weakness COMPARISON: Chest radiograph 09/17/2021 TECHNIQUE: Portable AP view of the chest FINDINGS: Cardiac silhouette is enlarged. Calcified plaque of the thoracic aorta. Unchanged minimal linear atelectasis/scarring of the left lung base. No pneumothorax, pleural effusion, airspace consolidation or overt pulmonary edema. Severe osteoarthritis of the shoulders. IMPRESSION: Cardiomegaly without acute process. ACT 112: Negative or not required by law. The above report was generated using voice recognition software. It may contain grammatical, syntax or spelling errors. Electronically signed by: Chester Bowman M.D. 10/01/2021 7:11 PM Discharge Plan Visit Data Chief Complaint: Urinary Symptoms Stated Complaint: UTI ED Provider: Dominick Aden Discharge Problem: AMS (altered mental status), Generalized weakness, Acute UTI (urinary tract infection) Forms Stand Alone Forms: [facility] [place] Prescriptions Prescriptions: No Action cranberry 500 mg capsule 500 mg PO QDL RF: 0 docusate sodium [Colace] 100 mg capsule 100 mg PO TIDM RF: 0 cholecalciferol (vitamin D3) [Dialyvite Vitamin D] 125 mcg (5,000 unit) capsule 125 mcg PO QAM RF: 0 magnesium glycinate 100 mg tablet 400 mg PO QAM RF: 0 cyanocobalamin (vitamin B-12) [Vitamin B-12] 1,000 mcg Tablet 500 mcg PO QDD RF: 0 zinc 50 mg Tablet 50 mg PO QDL RF: 0 Acidophilus Tablet,Chewable 1 tab PO HS RF: 0 coQ10 (ubiquinol) 200 mg Capsule 400 mg PO QAM RF: 0 lisinopril 20 mg tablet 20 mg PO AMHS RF: 0 levothyroxine 100 mcg tablet 100 mcg PO DAILYBB RF: 0 hydrochlorothiazide 25 mg tablet 25 mg PO QAM RF: 0 Eliquis 2.5 mg tablet 5 mg PO BID RF: 0 cefuroxime axetil 250 mg Tablet 250 mg PO BID RF: 0 ascorbic acid (vitamin C) [Vitamin C] 500 mg Tablet 500 mg PO QAM RF: 0 omeprazole 20 mg Capsule,Delayed Release(Dr/Ec) 20 mg PO QDL RF: 0 celecoxib 100 mg capsule 100 mg PO QDD RF: 0 aspirin 81 mg tablet,delayed release (DR/EC) 81 mg PO QDL RF: 0 calcium citrate 500 mg Tablet, Effervescent 500 mg PO DAILYBL RF: 0 Natrol 5-HTP 50 mg Capsule 100 mg PO HS RF: 0 hydralazine 50 mg Tablet 50 mg PO QID RF: 0 Referrals Referrals: [facility] [Non-Staff] -
--- NOTE | 2021-10-01 19:12 | XRay Report ---
XR chest 1V portable HISTORY: 89 years-old Female weakness acute weakness COMPARISON: Chest radiograph 09/17/2021 TECHNIQUE: Portable AP view of the chest FINDINGS: Cardiac silhouette is enlarged. Calcified plaque of the thoracic aorta. Unchanged minimal linear atel ectasis/scarring of the left lung base. No pneumothorax, pleural effusion, airspace consolidation or overt pulmonary edema. Severe osteoarthritis of the shoulders. IMPRESSION: Cardiomegaly without acute process. ACT 112: Negative or not required by law. The above report was generated using voice recognition software. It may contain grammatical, syntax o r spelling errors. Electronically signed by: Chester Bowman M.D. 10/01/2021 7:11 PM
[2021-10-01 20:01] LABS: Basophils # (auto) 0.02 K/uL (0-0.2); Basophils % (auto) 0.3 %; Eosinophils % (auto) 3.2 %; Hematocrit (blood only) 43.4 % (37-47); Hemoglobin 14.4 g/dL (12.0-16.0); Immature Granulocytes # (auto) 0.01 K/uL (0.00-0.02); Immature Granulocytes % (auto) 0.2 %; Lymphocytes # (auto) 1.39 K/uL (1.2-3.4); Lymphocytes % (auto) 22.1 %; Mean Corpuscular Hgb Conc 33.2 g/dL (32-36); Mean Corpuscular Volume 99.3 fL (80-100); Mean Platelet Volume 11.1 fL (7.4-10.4); Monocytes # (auto) 0.65 K/uL (0.11-0.59); Monocytes % (auto) 10.4 %; Neutrophils # (auto) 4.01 K/uL (1.4-6.5); Neutrophils % (auto) 63.8 %; Platelet Count 191 K/uL (130-400); RDW Standard Deviation 50.9 fL (36.4-46.3); Red Blood Count 4.37 M/uL (4.2-5.4); White Blood Count 6.28 K/uL (4.8-10.8)
--- NOTE | 2021-10-01 20:16 | CT Scan Report ---
CT head/brain wo con CLINICAL HISTORY: 89 years-old Female with confusion, recent head trauma, on eliquis. Acutely altere d mental status with recent head trauma TECHNIQUE: Multiple axial CT images of the head were obtained without contrast. A dose lowering tech nique was utilized adhering to the principles of ALARA. CT DOSE: 614.27 mGy.cm COMPARISON: Head CT and CTA head 09/17/2021 FINDINGS: No acute intracranial hemorrhage, midline shift, intracranial mass, hydrocephalus, territorial ischem ia or abnormal extra-axial collection. Age-related involutional changes. White matter hypodensities s uggest chronic microvascular ischemic disease. Unchanged fusiform dilation of the cavernous and supra clinoid segments of the right internal carotid artery. The calvarium is intact. 1.3 cm right frontal scalp hematoma. The paranasal sinuses, mastoid air cell s, and middle ear cavities are clear. IMPRESSION: 1. No acute intracranial abnormality or calvarial fracture. 2. Small right frontal scalp hematoma. ACT 112: Negative or not required by law. The above report was generated using voice recognition software. It may contain grammatical, syntax o r spelling errors. Electronically signed by: Chester Bowman M.D. 10/01/2021 8:14 PM
[2021-10-01 20:35] LABS: Appearance Urine Clear (Clear); Bacteria Urine Automated 2+ (Negative); Bilirubin Urine Negative (Negative); Blood Urine Negative (Negative); Color Urine Yellow; Epithelial Cell Urine Auto 0-5 /lpf (0-5); Glucose Urine UA Negative (Negative); Ketones Urine Negative (Negative); Leukocyte Esterase Urine Trace (Negative); Nitrite Urine Negative (Negative); Protein Urine 1+ (Negative); RBC Urine Automated 0-4 /hpf (0-4); Specific Gravity Urine 1.009 (1.000-1.030); Urobilinogen Urine Negative (Negative); WBC Urine Automated >30 /hpf (0-5); pH Urine 6.5 (4.5-7.5)
[2021-10-01] MEDS ORDERED: cefTRIAXone SODIUM 1,000 MG/50 ML BAG IV STA (20:57)
[2021-10-01 20:58] LABS: Alanine Aminotransferase 19 U/L (12-78); Albumin Globulin Ratio 0.7 (0.9-2); Albumin Level 2.9 gm/dl (3.4-5.0); Alkaline Phosphatase 66 U/L (45-117); BUN Creatinine Ratio 32.7 (10-20); Bilirubin,Total 0.4 mg/dl (0.2-1); Blood Urea Nitrogen 26 mg/dl (7-18); Calcium 9.4 mg/dl (8.5-10.1); Carbon Dioxide 23 mmol/L (21-32); Chloride 106 mmol/L (98-107); Est GFR (African American) 75.8 ml/min; Est GFR (Non-African American) 65.4 ml/min; Glucose 86 mg/dl (70-99); Sodium 136 mmol/L (136-145); Total Protein 6.9 gm/dl (6.4-8.2); Troponin I 0.022 ng/ml (0-0.045)
[2021-10-01 21:14] LABS: Cast Urine Automated 0 /lpf (0-5)
[2021-10-01 21:41] LABS: Magnesium 1.9 mg/dl (1.8-2.4); Potassium 4.2 mmol/L (3.5-5.1)
--- NOTE | 2021-10-01 22:39 | History & Physical Report ---
Date of Service October 01, 2021 Assessment & Plan (1) AMS (altered mental status): Plan: AMS -Likely metabolic encephalopathy secondary to UTI but differential includes active stroke from atrial fibrillation thromboembolism -CT Head neg but will pursue MRI for evaluation of diffuse injury 2/2 atrial fibrillation thromboembolus -No safety concern at this time as AMS is mild, non-agitated Recent CVA -09/2021 admission for R sided weakness- CTH demonstrating mild small vessel ischemic disease and stenoses of carotid bulbs b/l -MRI from previous admission- 4mm left frontoparietal infarct, -CTH on admission neg for acute bleed, showing unchanged fusiform dilation of right ICA -Continue home aspirin -Not on any statin therapy UTI -Chronic UTI initially diagnosed during 09/2021 CVA hospitalization, UCx at time showing E Coli, Group B Strep -UA this admission- +leukocyte esterase, WBCs, bacteria -Afebrile, WBC 6.3 -Received Rocephin 1g in ED -Continue Rocephin 1g q24h -Continue IVF -Trend CBC, BMP Afib -Newly diagnosed within past 1-2 months -Anticoagulation with Eliquis 5 mg BID ongoing -Continue home Eliquis -Currently rate-controlled without medication Recent fall (2) Scalp contusion: (3) Acute UTI (urinary tract infection): (4) Atrial fibrillation: (5) History of CVA with residual deficit: History of Present Illness Chief Complaint: Weakness, urinary symptoms Primary Care Provider: Felicitas Castaneda PA-C 89 yo F with PMH recent CVA, HTN, HLD, hypothyroidism, recurrent UTIs, 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 Earlier this month was admitted for small CVA of left frontoparietal region, discharged with some residual right sided weakness, also noted to have UTI and treated with abx. Came to ED on 09/30 after falling in bathroom and hitting R forehead, no LOC, imaging negative for acute injury. Pt treated again with abx for UTI due to mild confusion, continued urinary symptoms. On evaluation, pt states she has had urinary symptoms of dysuria, urgency and frequency but uncertain how long. Feels generally weak/malaise but no distress. Acknowledges she's been confused with poor recall of past few days, could not explain why she came to hospital today. Per chart review of daughter's account in ED, pt has become progressively weaker over past several days with increased confusion. At present, continues to endorse dysuria and suprapubic discomfort but denies abdominal pain, fever, dyspnea, nausea/vomiting, diarrhea. Denies palpitations, lightheadedness, weakness, numbness, vision change, headache. Allergies Allergy/AdvReac Type Severity Reaction Status Date / Time cinnamon Allergy Unknown Unknown Verified 10/01/21 19:15 papaya Allergy Unknown Unknown Verified 10/01/21 19:15 Home Medications Medication Instructions Recorded Confirmed Type cholecalciferol (vitamin D3) 125 125 mcg PO QAM 11/27/20 10/01/21 History mcg (5,000 unit) capsule (Dialyvite Vitamin D) cranberry 500 mg capsule 500 mg PO QDL cap 11/27/20 10/01/21 History docusate sodium 100 mg capsule 100 mg PO TIDM cap 11/27/20 10/01/21 History (Colace) magnesium glycinate 100 mg tablet 400 mg PO QAM tab 04/07/21 10/01/21 History Lactobacillus acidophilus 1 tab PO HS 09/17/21 10/01/21 History (Acidophilus) apixaban 2.5 mg tablet (Eliquis) 5 mg PO BID 09/17/21 10/01/21 History coQ10 (ubiquinol) 200 mg capsule 400 mg PO QAM 09/17/21 10/01/21 History cyanocobalamin (vitamin B-12) 500 mcg PO QDD 09/17/21 10/01/21 History 1,000 mcg tablet (Vitamin B-12) hydrochlorothiazide 25 mg tablet 25 mg PO QAM 09/17/21 10/01/21 History levothyroxine 100 mcg tablet 100 mcg PO DAILYBB 09/17/21 10/01/21 History lisinopril 20 mg tablet 20 mg PO AMHS 09/17/21 10/01/21 History zinc 50 mg tablet 50 mg PO QDL 09/17/21 10/01/21 History ascorbic acid (vitamin C) 500 mg 500 mg PO QAM 09/29/21 10/01/21 History tablet (Vitamin C) aspirin 81 mg tablet,delayed 81 mg PO QDL 09/29/21 10/01/21 History release cefuroxime axetil 250 mg tablet 250 mg PO BID 09/29/21 10/01/21 History celecoxib 100 mg capsule 100 mg PO QDD 09/29/21 10/01/21 History omeprazole 20 mg capsule,delayed 20 mg PO QDL 09/29/21 10/01/21 History release 5-hydroxytryptophan (5-HTP) 50 mg 100 mg PO HS 10/01/21 10/01/21 History capsule (Natrol 5-HTP) calcium citrate 500 mg (2,376 mg) 500 mg PO DAILYBL 10/01/21 10/01/21 History effervescent tablet hydralazine 50 mg tablet 50 mg PO QID 10/01/21 10/01/21 History Past Med/Surg History Medical History Arthritis Atrial fibrillation Balance disorder Fall History of femoral hernia History of umbilical hernia Hypertension Hypomagnesemia Hypothyroidism Vitamin B12 deficiency Vitamin D deficiency Surgical History History of arthroscopic knee surgery History of bilateral knee replacement History of eye surgery History of hysterectomy History of tonsillectomy Family History Father , age 56 of heart disease Myocardial infarction Mother , age 68 of a neurologic condition causing "stiffness" (no details) No problems noted. Denies family history of Ovarian cancer Prostate cancer Breast cancer Colorectal cancer Social History Smoking Status: Former smoker Tobacco Type: E-cigarettes / Vaping Second Hand Exposure: No; Hx Alcohol Use: No Hx Substance Use: No Preferred Language: Slovak Communication Ability: Effective Hearing Ability: Hard of Hearing Systems Admin Required: No Beliefs That Will Affect Care: None marital status: Unknown Current Living Situation: Family Current Living Situation Comment: Pt. lives w/ daughter, Lashanda Mijares current occupational status: retired current occupation: retired as an RN age 62 Other Information That Helps Us Care for You: No Feels Safe at Home: Yes Dental Care, Regularly: Yes Physical Activity Frequency: Daily Physical Activity Frequency Comment: walks with walker around the house - cubie Seatbelt Use: always Sunscreen Use: No Assistive Devices: Walker Review of Systems Review of Systems: Per HPI- +dysuria, urinary frequency, urgency, malaise Physical Exam Physical Exam: General: confused but pleasant, laying in bed, no acute distress HEENT: PERRLA, dry mucous membranes, no lymphadenopathy, no JVD b/l CV: irregular, normal rate, no murmurs Resp: CTAB, unlabored respirations without accessory muscle use Abd: slight suprapubic tenderness and distension, soft, no CVA tenderness b/l Neuro: AOx3, no pronator drift, RUE/RLE 4/5 strength, 5/5 strength of LUE/LLE, no sensory deficits Skin: warm and dry without rashes, no pallor Ext: no peripheral edema, distal pulses 2+ b/l, cap refill <2s Results & Data Results & Data ([facility]) Vital Signs (Past 12 Hours) Vital Signs Pulse Resp BP Pulse Ox 10/01/21 21:32 82 18 138/99 96 10/01/21 20:10 82 18 190/90 H 97 10/01/21 18:10 72 18 164/103 H 97 Laboratory Results Laboratory Results WBC 6.28 K/uL (4.8-10.8) 10/01/21 19:23 RBC 4.37 M/uL (4.2-5.4) 10/01/21 19:23 Hgb 14.4 g/dL (12.0-16.0) 10/01/21 19:23 Hct 43.4 % (37-47) 10/01/21 19:23 MCV 99.3 fL (80-100) 10/01/21 19:23 MCH 33.0 pg (25-34) 10/01/21 19:23 MCHC 33.2 g/dL (32-36) 10/01/21 19:23 RDW Std Deviation 50.9 fL (36.4-46.3) H 10/01/21 19:23 RDW Coeff of Evaristo 14.0 % (11.5-14.5) 10/01/21 19:23 Plt Count 191 K/uL (130-400) 10/01/21 19:23 MPV 11.1 fL (7.4-10.4) H 10/01/21 19:23 Immature Gran % (Auto) 0.2 % 10/01/21 19:23 Neut % (Auto) 63.8 % 10/01/21 19:23 Lymph % (Auto) 22.1 % 10/01/21 19:23 Loving % (Auto) 10.4 % 10/01/21 19:23 Eos % (Auto) 3.2 % 10/01/21 19:23 Baso % (Auto) 0.3 % 10/01/21 19: Neut # (Auto) 4.01 K/uL (1.4-6.5) 10/01/21 19: Lymph # (Auto) 1.39 K/uL (1.2-3.4) 10/01/21 19: Loving # (Auto) 0.65 K/uL (0.11-0.59) H 10/01/21 19: Eos # (Auto) 0.20 K/uL (0-0.5) 10/01/21 19: Baso # (Auto) 0.02 K/uL (0-0.2) 10/01/21 19: Immature Gran # (Auto) 0.01 K/uL (0.00-0.02) 10/01/21 19: Sodium 136 mmol/L (136-145) 10/01/21 19: Potassium 4.2 mmol/L (3.5-5.1) 10/01/21 21:11 Chloride 106 mmol/L (98-107) 10/01/21 19: Carbon Dioxide 23 mmol/L (21-32) 10/01/21 19: Anion Gap 7.0 (3-11) 10/01/21 19: BUN 26 mg/dl (7-18) H 10/01/21 19: Creatinine 0.80 mg/dl (0.6-1.2) 10/01/21 19: Est Cr Clr Drug Dosing Not Reportable 10/01/21: Est GFR ( Amer) 75.8 ml/min 10/01/21 19: Est GFR (Non-Af Amer) 65.4 ml/min 10/01/21 19: BUN/Creatinine Ratio 32.7 (10-20) H 10/01/21 19: Glucose 86 mg/dl (70-99) 10/01/21 19:23 Calcium 9.4 mg/dl (8.5-10.1) 10/01/21 19:23 Magnesium 1.9 mg/dl (1.8-2.4) 10/01/21 21:11 Total Bilirubin 0.4 mg/dl (0.2-1) 10/01/21 19:23 AST 21 U/L (15-37) 10/01/21 21:11 ALT 19 U/L (12-78) 10/01/21 19: Alkaline Phosphatase 66 U/L (45-117) 10/01/21 19:23 Troponin I 0.022 ng/ml (0-0.045) 10/01/21 19: Total Protein 6.9 gm/dl (6.4-8.2) 10/01/21 19: Albumin 2.9 gm/dl (3.4-5.0) L 10/01/21 19: Globulin 4.0 gm/dl (2.5-4.0) 10/01/21 19: Albumin/Globulin Ratio 0.7 (0.9-2) L 10/01/21 19:23 TSH 4.470 uIu/ml (0.300-4.500) 10/01/21 19:23 Specimen Hemolysis 10/01/21 21:11 Urine Color Yellow 10/01/21 19:45 Urine Appearance Clear (Clear) 10/01/21 19:45 Urine pH 6.5 (4.5-7.5) 10/01/21 19:45 Ur Specific Jackson 1.009 (1.000-1.030) 10/01/21 19:45 Urine Protein 1+ (Negative) H 10/01/21 19:45 Urine Glucose (UA) Negative (Negative) 10/01/21 19:45 Urine Ketones Negative (Negative) 10/01/21 19:45 Urine Blood Negative (Negative) 10/01/21 19:45 Urine Nitrite Negative (Negative) 10/01/21 19:45 Urine Bilirubin Negative (Negative) 10/01/21 19:45 Urine Urobilinogen Negative (Negative) 10/01/21 19:45 Ur Leukocyte Esterase Trace (Negative) H 10/01/21 19:45 Urine WBC (Auto) >30 /hpf (0-5) H 10/01/21 19:45 Urine RBC (Auto) 0-4 /hpf (0-4) 10/01/21 19:45 U Hyaline Cast (Auto) 0 /lpf (0-5) 10/01/21 19:45 U Epithel Cells (Auto) 0-5 /lpf (0-5) 10/01/21 19:45 Urine Bacteria (Auto) 2+ (Negative) H 10/01/21 19:45 SARS-CoV-2, RNA, NAAT NEGATIVE (NEGATIVE) 10/01/21 21:[address] 10/01/21 18:46 CT head/brain wo con CLINICAL HISTORY: 89 years-old Female with confusion, recent head trauma, on eliquis. Acutely altered mental status with recent head trauma TECHNIQUE: Multiple axial CT images of the head were obtained without contrast. A dose lowering technique was utilized adhering to the principles of ALARA. CT DOSE: 614.27 mGy.cm COMPARISON: Head CT and CTA head 09/17/2021 FINDINGS: No acute intracranial hemorrhage, midline shift, intracranial mass, hydroce phalus, territorial ischemia or abnormal extra-axial collection. Age-related involutional changes. White matter hypodensities suggest chronic microvascular ischemic disease. Unchanged fusiform dilation of the cavernous and supraclinoid segments of the right internal carotid artery. The calvarium is intact. 1.3 cm right frontal scalp hematoma. The paranasal sinuses, mastoid air cells, and middle ear cavities are clear. IMPRESSION: 1. No acute intracranial abnormality or calvarial fracture. 2. Small right frontal scalp hematoma. ACT 112: Negative or not required by law. The above report was generated using voice recognition software. It may contain grammatical, syntax or spelling errors. Electronically signed by: Chester Bowman M.D. 10/01/2021 8:14 PM Chest X-Ray 10/01/21 18:47 XR chest 1V portable HISTORY: 89 years-old Female weakness acute weakness COMPARISON: Chest radiograph 09/17/2021 TECHNIQUE: Portable AP view of the chest FINDINGS: Cardiac silhouette is enlarged. Calcified plaque of the thoracic aorta. Unchanged minimal linear atelectasis/scarring of the left lung base. No pneumothorax, pleural effusion, airspace consolidation or overt pulmonary edema. Severe osteoarthritis of the shoulders. IMPRESSION: Cardiomegaly without acute process. ACT 112: Negative or not required by law. The above report was generated using voice recognition software. It may contain grammatical, syntax or spelling errors. Electronically signed by: Chester Bowman M.D. 10/01/2021 7:11 PM Supervising Physician Co-Signing Physician Notes Attending addendum: I have physically seen this patient, have supervised the medical residents activities, and agree with the H&P unless as otherwise noted. Assessment and Plan: Altered mental status/history of CVA- CT head shows right frontal scalp hematoma, without change compared to previous noted CVA Continue aspirin Symptoms more suggestive of metabolic encephalopathy Urinary tract infection/metabolic encephalopathy- Likely cause of symptoms Ceftriaxone 1 g IV daily Follow urine culture sensitivities Continue IV fluids, NSS at high 25 mils per hour x1 L Atrial fibrillation- Continue Eliquis Remaining orders and notations as noted Resident Activity Tracking Resident Involvement: Resident Care Provided Care Provided: Adult Hospital Medicine (1) Atrial fibrillation Atrial fibrillation type: unspecified Qualified Code(s): I48.91 - Unspecified atrial fibrillation (2) Scalp contusion Encounter type: initial encounter Qualified Code(s): S00.03XA - Contusion of scalp, initial encounter
[2021-10-02] MEDS ORDERED: MoRPHine SULFATE 2 MG/ML CARP IV PRN (02:10)
[2021-10-02] MEDS ORDERED: POLYETHYLENE (MIRALAX) 17 GM PACK PO PRN (02:10)
[2021-10-02] MEDS ORDERED: NITROGLYCERIN SL 0.4 MG/TAB TAB SL PRN (02:10)
[2021-10-02] MEDS ORDERED: ALUMINUM/MAGNESIUM SUSP 30 ML UDC PO PRN (02:10)
[2021-10-02] MEDS ORDERED: ACETAMINOPHEN 325 MG TAB PO PRN (02:10)
[2021-10-02] MEDS ORDERED: ONDANSETRON INJ 2 MG/ML 2 ML VIAL IV PRN (02:10)
[2021-10-02] MEDS ORDERED: MAGNESIUM HYDROXIDE SUSP 30 ML UDC PO PRN (02:10)
[2021-10-02] MEDS: LEVOTHYROXINE SODIUM 100 MCG TABLET PO SCH (06:14)
[2021-10-02] MEDS: SODIUM CHLORIDE 0.9% 1000ML 1,000 ML IV SCH ×2 (06:14→21:50)
--- NOTE | 2021-10-02 08:29 | Neurology Consultation ---
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 The right-sided weakness that was very mild and present with her Tiny left frontal parietal stroke from September 17, has resolved and she currently has no focal neurologic findings or meningeal signs. 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 She likely has a UTI and Rocephin has already made her somewhat improved from last night. Recommendations: 1. I really do not see a reason to recheck the MRI at this time. 2. Control blood pressure aimingfor a mean arterial pressure of closer to 100. 3. She is not a high dose statin candidate given her advanced age. 4. Increase activity as able and continue with physical and occupational therapy. 5. Check urine culture and treat accordingly. 6. Please contact me if I can be of further assistance on this case. Overall, I spent a total 60 minutes with this case including review of records, review of films, direct evaluation the patient at bedside, and discussion of the case with the patient and daughter at bedside, RN at bedside, and Dr. Quinonez including differential diagnosis and treatment options History of Present Illness Reason for Consultation: Patient is an 89-year-old, who I was asked to see at the request of Dr. Corrales, for neurologic consultation regarding acute confusion and history of stroke. Requesting Physician: Dr. Corrales Attending Physician: Miguel Quinonez MD History of Present Illness I 1st saw this patient on September 18 for what I believe was a very tiny left frontoparietal acute stroke (likely originating September 17 ) resulting in some mild right arm and leg weakness of a temporary nature. The etiology of the stroke was likely secondary to hypertension which she has had for many years. In addition she has a history of atrial fibrillation and was put on apixaban. 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 She was put on 81 mg aspirin tablet and was discharged September 18 improved condition. She had a urinary tract infection was being treated with antibiotic. [place] to the daughter who was present today at bedside patient was not given an antibiotic to take on discharge. She contacted patient's physician at the [place] and by September 21 she was given an antibiotic (unknown ). clinically the patient did very well and was back to her mental status and physical baseline by September 24. On September 27, she returned to the [place] PCP with some confusion that have been going on a day or so. A urinalysis was obtained and by the she was put on cefuroxime instead of the other antibiotic. Unfortunately, patient remained confused and had some trouble ambulating. She fell in the bathroom at 2100 on September 29 and struck her right forehead and right knee. She had swelling and bruising and went to the ER. A CT scan of the head was unchanged except for scalp hematoma and she was discharged. Other labs were unremarkable. She returned to the emergency room on October 01 because of trouble walking and confusion. She arrived to the emergency room October 01 at 1810, pulse is 72, respiratory rate 18, blood pressure 164/103, and O2 saturation 97%. She was given 1 g of Rocephin IV. On exam she had some general weakness in her legs and was mildly confused. CBC and Chem profile were unremarkable although the BUN was mildly elevated. Liver profile was unremarkable and TSH was 4.4. There was greater 30 white cells in urine. Chest x-ray showed cardiomegaly and was unchanged. CT scan of the head showed no acute changes. A more recent blood pressure this morning was 171/108. Patient herself has no complaint of pain, headache, dizziness, or vision problems. She does not feel that she is any weaker or number in her arms or legs. Allergies Allergy/AdvReac Type Severity Reaction Status Date / Time cinnamon Allergy Unknown Unknown Verified 10/01/21 19:15 papaya Allergy Unknown Unknown Verified 10/01/21 19:15 Home Medications Medication Instructions Recorded Confirmed Type cholecalciferol (vitamin D3) 125 125 mcg PO QAM 11/27/20 10/01/21 History mcg (5,000 unit) capsule (Dialyvite Vitamin D) cranberry 500 mg capsule 500 mg PO QDL cap 11/27/20 10/01/21 History docusate sodium 100 mg capsule 100 mg PO TIDM cap 11/27/20 10/01/21 History (Colace) magnesium glycinate 100 mg tablet 400 mg PO QAM tab 04/07/21 10/01/21 History Lactobacillus acidophilus 1 tab PO HS 09/17/21 10/01/21 History (Acidophilus) apixaban 2.5 mg tablet (Eliquis) 5 mg PO BID 09/17/21 10/01/21 History coQ10 (ubiquinol) 200 mg capsule 400 mg PO QAM 09/17/21 10/01/21 History cyanocobalamin (vitamin B-12) 500 mcg PO QDD 09/17/21 10/01/21 History 1,000 mcg tablet (Vitamin B-12) hydrochlorothiazide 25 mg tablet 25 mg PO QAM 09/17/21 10/01/21 History levothyroxine 100 mcg tablet 100 mcg PO DAILYBB 09/17/21 10/01/21 History lisinopril 20 mg tablet 20 mg PO AMHS 09/17/21 10/01/21 History zinc 50 mg tablet 50 mg PO QDL 09/17/21 10/01/21 History ascorbic acid (vitamin C) 500 mg 500 mg PO QAM 09/29/21 10/01/21 History tablet (Vitamin C) aspirin 81 mg tablet,delayed 81 mg PO QDL 09/29/21 10/01/21 History release cefuroxime axetil 250 mg tablet 250 mg PO BID 09/29/21 10/01/21 History celecoxib 100 mg capsule 100 mg PO QDD 09/29/21 10/01/21 History omeprazole 20 mg capsule,delayed 20 mg PO QDL 09/29/21 10/01/21 History release 5-hydroxytryptophan (5-HTP) 50 mg 100 mg PO HS 10/01/21 10/01/21 History capsule (Natrol 5-HTP) calcium citrate 500 mg (2,376 mg) 500 mg PO DAILYBL 10/01/21 10/01/21 History effervescent tablet hydralazine 50 mg tablet 50 mg PO QID 10/01/21 10/01/21 History Patient History Medical History Arthritis Atrial fibrillation Balance disorder Fall History of femoral hernia History of umbilical hernia Hypertension Hypomagnesemia Hypothyroidism Vitamin B12 deficiency Vitamin D deficiency Surgical History History of arthroscopic knee surgery History of bilateral knee replacement History of eye surgery History of hysterectomy History of tonsillectomy Family History Father , age 56 of heart disease Myocardial infarction Mother , age 68 of a neurologic condition causing "stiffness" (no details) No problems noted. Denies family history of Ovarian cancer Prostate cancer Breast cancer Colorectal cancer Social History Smoking Status: Former smoker Tobacco Type: E-cigarettes / Vaping Second Hand Exposure: No; Hx Alcohol Use: No Hx Substance Use: No Preferred Language: Danish Communication Ability: Effective Hearing Ability: Hard of Hearing Delivery Nurse Required: No Beliefs That Will Affect Care: None Current Living Situation: Family Current Living Situation Comment: Pt. lives w/ daughter, Lashanda Mijares current occupational status: retired current occupation: retired as an RN age 62 Other Information That Helps Us Care for You: No Feels Safe at Home: Yes Dental Care, Regularly: Yes Physical Activity Frequency: Daily Physical Activity Frequency Comment: walks with walker around the house - cubie Seatbelt Use: always Sunscreen Use: No Assistive Devices: Walker Review of Systems Constitutional: no fever, no fatigue and no weakness Eyes: no diplopia, no eye pain and no worsening vision Ear, Nose, Mouth, Throat: no ear pain, no tinnitus, no hearing loss, no dizziness, no snoring, no hoarseness and no dysphagia Respiratory: no cough and no dyspnea Cardiovascular: no chest pain, no palpitations and no lightheadedness Gastrointestinal: no abdominal pain, no nausea and no vomiting Genitourinary: no dysuria, no urinary frequency and no urinary incontinence Musculoskeletal: no back pain, no neck pain, no radicular pain, no joint pain and no myalgia Integumentary: no rash and no lesions Neurologic: no gait abnormality, no localized weakness, no generalized weakness, no tingling, no numbness, no tremor(s), no abnormal movements, no headache(s), no abnormal speech, no confusion and no memory loss Psychiatric: no depression, no irritability, no anxiety, no difficulty concentrating, no confusion and no hallucinations Endocrine: no fatigue and no flushing Hematologic / Lymphatic: no easy bleeding and no easy bruising Allergy / Immunological: no urticaria and no problem reported Exam (Neuro) Physical Exam: The patient is right-handed. The patient is awake, alert, and attentive. Speech is normal without any aphasia or dysarthria. The patient can name objects, repeat phrases, and has normal spontaneous speech. Attention and concentration are normal. Mood and affect are normal and appropriate. General appearance and grooming are normal. She is oriented to her name, place, and where she is from. She knows what town she lives and then what month it is. She knew the president and could do simple calculations. She could distinguish left from right. She did not know the day or the year. She was a little hesitant in her answers but was very pleasant and cooperative. She knew all her children's names and how many grandchildren she. Pupils are 2-3 mm bilaterally and reactive to light. It was too difficult to see in with the ophthalmoscope because of small pupils. Extraocular eye muscles are intact without nystagmus. Visual acuity and visual hercules seem normal grossly to confrontation. There are no deficits to sensation in the face in all 3 distributions of the fifth cranial nerve bilaterally. Corneal reflexes are positive bilaterally. Facial strength and symmetry was normal bilaterally. Hearing seems normal bilaterally. Palate moves well without asymmetry. There is normal sternocleidomastoid and trapezius (shoulder shrug) strength bilaterally. Tongue is midline with good strength bilaterally. Neck has a full range of motion without discomfort. There are no cervical bruits bilaterally. There are no cranial or ocular bruits. Heart is without murmur. There is a regular rhythm and rate. Cervical, thoracic, and lumbar spine are nontender to palpation. Gait was not tested and stance sitting up is somewhat poor due to weak abdominal muscles. With outstretched arms there is no drift. There are no resting, postural, or action tremors. There is no ataxia with finger to nose testing. There is good facility in the hands. No other abnormal involuntary movements are noted. Motor strength is 5/5 diffusely in the arms bilaterally including deltoids, biceps, triceps, brachioradialis, wrist flexors and extensors, clinical rn, and intrinsic hand muscles. Motor strength is 5/5 diffusely in the legs bilaterally including hip flexors, quadriceps, hamstrings, gastrocnemius, tibialis anterior, tibialis posterior, and Peroneii muscles. Toe extensors are normal and there is good bulk in the extensor digitorum brevis muscles bilaterally. I could not detect any focal weakness. The limbs have good tone without rigidity or spasticity. There is no atrophy noted in the muscles. Muscle bulk is normal, there is no tenderness to palpation, no myotonia to percussion, and no fasciculations seen. Sensory examination reveals some decreased sensation in the feet bilaterally Reflexes are 1/4 in the biceps, triceps, and quadriceps tendons bilaterally. brachioradialis and Achilles tendon reflexes are absent bilaterally. There is no clonus bilaterally. Toes are downgoing with plantar stimulation bilaterally. Peripheral pulses are present and of normal quality distally in all 4 limbs. There is no peripheral edema noted in the limbs. Results & Data ([facility]) Vital Signs (Past 12 Hours) Vital Signs Temp Pulse Resp BP Pulse Ox Pulse Ox 10/02/21 02:10 36.6 C 65 16 171/108 H 98 98 10/01/21 21:32 82 18 138/99 96 PG Care Time/CCT Total # of Minutes Spent Total Time Spent with Patient: Total time spent is greater than 50% in coordination of care (as documented) at patient's floor/unit and/or counseling patient: Coding Level of Care Code 49190 Initial Inpt Care Lvl 3 Diagnoses AMS (altered mental status) R41.82 History of CVA with residual deficit I69.30 Carotid aneurysm, right I72.0 Hypertension I10 Balance disorder R26.89 Generalized weakness R53.1 Time Spent (min) 60
[2021-10-02] MEDS ORDERED: NON-FORMULARY MEDICATION (Coq10 (Ubiquinol) 200 mg Capsule) PO SCH (09:00)
[2021-10-02] MEDS ORDERED: MAGNESIUM GLYCINATE 100 MG PO SCH (09:00)
[2021-10-02] MEDS: hydrALAZINE TAB 50 MG TAB PO SCH ×5 (10:37→21:51)
[2021-10-02] MEDS: DOCUSATE SODIUM 100 MG CAP PO SCH ×3 (10:38→18:03)
[2021-10-02] MEDS: CHOLECALCIFEROL 1,000 UNITS 25 MCG TAB PO SCH (10:38)
[2021-10-02] MEDS: lisinopril 20 MG TAB PO SCH ×2 (10:38→21:51)
[2021-10-02] MEDS: ASCORBIC ACID 500 MG TAB PO SCH (10:38)
[2021-10-02] MEDS: ZINC SULFATE 220 MG CAPSULE PO SCH (10:40)
[2021-10-02] MEDS: CALCIUM CITRATE 950 MG TAB PO SCH (10:40)
[2021-10-02] MEDS: ASPIRIN 81 MG ECTAB PO SCH (10:40)
[2021-10-02] MEDS: PANTOprazole 40 MG TAB PO SCH (10:41)
[2021-10-02] MEDS: HEPARIN SOD 5,000 UNIT/0.5 ML VIAL SQ SCH ×2 (11:00→21:50)
[2021-10-02] MEDS ORDERED: amLODIPine BESYLATE 5 MG TAB PO ONE (11:04)
--- NOTE | 2021-10-02 11:04 | Hospitalist Progress Note ---
Date of Service October 02, 2021 Assessment & Plan (1) Encephalopathy: Plan: pt presented with encephalopathy with history of previous strokes, improving on antibiotics felt to be more metabolic encephalopathy and not from stroke has history of chronic uti previous e coli on Rocephin (2) Atrial fibrillation: Plan: recently diagnosed afib on eliquis , not on any rate controlling medicines (3) HLD (hyperlipidemia): (4) Hypothyroidism: Plan: synthroid 100 mcg a day (5) Hypertension: Plan: on hydralazine and lisinopril Admission and Anticipated Discharge Date Admission Date: October 01, 2021 Subjective pt was seen with her daughter at the bedside, she is improved, bp is elevated but did not take am medications Review of Systems Review of Systems: Mild distress and fatigue no headache, no visual changes no speech or swallowing issues no chest pain, pressure or palpitations no shortness of breath, cough or wheezes no abdominal pain, nausea or vomiting, diarrhea or constipation no dysuria, hematuria or frequency no focal joint pain or swelling no back pain, CVA tenderness or radicular pain no bruising, bleeding or rashes no focal signs of weakness or numbness or altered sensation no complaints of anxiety or depression.. Physical Exam Physical Exam: The patient appeared well nourished and normally developed. Vital signs as documented. Head exam is normocephalic atraumatic Neck is without JVD, thyromegaly, or carotid bruits. Lungs are clear to auscultation, no focal loss of breath sounds Cardiac exam, Rhythm is regular.. No murmurs, rubs or gallops. Abdominal exam reveals normal bowel sounds, soft non tender, no masses Extremities are nonedematous and both pedal pulses are present Neurologic exam is alert and oriented, x2 no focal loss of strength or sensation Skin is without bruises or rashes Psychologically is without concerns for anxiety or depression.. Results & Data Results & Data ([facility]) Vital Signs (Past 12 Hours) Vital Signs Temp Pulse Resp BP Pulse Ox Pulse Ox 10/02/21 02:10 97.9 F 65 16 171/108 H 98 98 PG Care Time/CCT Total # of Minutes Spent Total Time Spent with Patient: Total time spent is greater than 50% in coordination of care (as documented) at patient's floor/unit and/or counseling patient: Coding Level of Care Code 80362 Subseq Hosp Care Lvl 2 Diagnoses HLD (hyperlipidemia) E78.5 Atrial fibrillation I48.91 Atrial fibrillation type: unspecified Hypothyroidism E03.9 Hypertension I10 Encephalopathy G93.40 (1) Atrial fibrillation Atrial fibrillation type: unspecified Qualified Code(s): I48.91 - Unspecified atrial fibrillation
[2021-10-02] MEDS ORDERED: CYANOCOBALAMIN 500 MCG TABLET (VITAMIN B-12) PO SCH (16:30)
[2021-10-02] MEDS ORDERED: MEROPENEM CONSULT ACTIVE PRN (17:05)
[2021-10-02] MEDS: MEROPENEM 500 MG in SYRINGE 0 ML IV SCH (18:04)
[2021-10-02] MEDS ORDERED: HYDROXYTRYPTOPHAN 50 MG PO SCH (21:00)
[2021-10-02] MEDS ORDERED: ADVANCED PROBIOTIC 1250 MG CAPSULE PO SCH (21:00)
--- NOTE | 2021-10-03 02:38 | Billing Data ---
Date of Service October 03, 2021 Coding Level of Care Code 37637 Initial Inpt Care Lvl 3
[2021-10-03] MEDS: LEVOTHYROXINE SODIUM 100 MCG TABLET PO SCH (05:32)
[2021-10-03] MEDS: MEROPENEM 500 MG in SYRINGE 0 ML IV SCH (06:17)
[2021-10-03] MEDS ORDERED: amLODIPine BESYLATE 5 MG TAB PO SCH (09:00)
[2021-10-03] MEDS ORDERED: cefTRIAXone SODIUM 2,000 MG in DEXTROSE 5% 50 ML IV SCH (09:00)
--- NOTE | 2021-10-03 09:41 | Electrocardiogram Report ---
Test Reason : Blood Pressure : / mmHG Vent. Rate : 073 BPM Atrial Rate : 441 BPM P-R Int : 000 ms QRS Dur : 072 ms QT Int : 388 ms P-R-T Axes : 000 115 007 degrees QTc Int : 427 ms L arm L leg lead reversal Atrial fibrillation Anterolateral infarct (cited on or before 17-SEP-2021) Abnormal ECG When compared with ECG of 29-SEP-2021 22:12, No significant change taking into account lead reversal Confirmed by Colton Torres ([id number]) on 10/03/2021 9:40:58 AM Referred By: Felicitas Castaneda Confirmed By:Colton Torres
[2021-10-03] MEDS: DOCUSATE SODIUM 100 MG CAP PO SCH ×2 (10:16→12:45)
[2021-10-03] MEDS: CHOLECALCIFEROL 1,000 UNITS 25 MCG TAB PO SCH (10:16)
[2021-10-03] MEDS: hydrALAZINE TAB 50 MG TAB PO SCH ×2 (10:17→12:45)
[2021-10-03] MEDS: lisinopril 20 MG TAB PO SCH (10:17)
[2021-10-03] MEDS: ASCORBIC ACID 500 MG TAB PO SCH (10:17)
[2021-10-03] MEDS: CALCIUM CITRATE 950 MG TAB PO SCH (10:17)
[2021-10-03] MEDS: HEPARIN SOD 5,000 UNIT/0.5 ML VIAL SQ SCH (10:17)
[2021-10-03] MEDS: ASPIRIN 81 MG ECTAB PO SCH (12:45)
[2021-10-03] MEDS: PANTOprazole 40 MG TAB PO SCH (12:45)
[2021-10-03] MEDS: ZINC SULFATE 220 MG CAPSULE PO SCH (12:45)
--- NOTE | 2021-10-12 11:00 | Discharge Summary ---
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 Earlier this month was admitted for small CVA of left frontoparietal region, discharged with some residual right sided weakness, also noted to have UTI and treated with abx. Came to ED on 09/30 after falling in bathroom and hitting R forehead, no LOC, imaging negative for acute injury. Pt treated again with abx for UTI due to mild confusion, continued urinary symptoms. On evaluation, pt states she has had urinary symptoms of dysuria, urgency and frequency but uncertain how long. Feels generally weak/malaise but no distress. Acknowledges she's been confused with poor recall of past few days, could not explain why she came to hospital today. Per chart review of daughter's account in ED, pt has become progressively weaker over past several days with increased confusion. At present, continues to endorse dysuria and suprapubic discomfort but denies abdominal pain, fever, dyspnea, nausea/vomiting, diarrhea. Denies palpitations, lightheadedness, weakness, numbness, vision change, headache. Principal Diagnosis metabolic encephalopathy pseudomonas UTI Discharge Exam The patient appeared well Vital signs as documented. Lungs are clear to auscultation and appear unlabored Cardiac exam, Rhythm is regular.. No murmurs, rubs or gallops. Abdominal exam reveals normal bowel sounds, soft non tender, no masses Extremities are nonedematous and both pedal pulses are normal. Neurologic exam is alert and oriented, no focal loss of strength or sensation Skin is without bruises or rashes Psychologically is without concerns for anxiety or depression. Discharge Data Allergies Allergy/AdvReac Type Severity Reaction Status Date / Time cinnamon Allergy Unknown Unknown Verified 10/01/21 19:15 papaya Allergy Unknown Unknown Verified 10/01/21 19:15 Consultations 10/01/21 21:53 ED Decision to Admit Stat 10/02/21 02:10 Consult Neurology Routine Ordered Studies 10/01/21 18:46 CT head/brain wo con Stat Hospital Course (1) AMS (altered mental status): AMS -Likely metabolic encephalopathy secondary to UTI Pseudomonas Recent CVA -09/2021 admission for R sided weakness- CTH demonstrating mild small vessel ischemic disease and stenoses of carotid bulbs b/l -MRI from previous admission- 4mm left frontoparietal infarct, -CTH on admission neg for acute bleed, showing unchanged fusiform dilation of right ICA -Continue home aspirin -Not on any statin therapy UTI -Chronic UTI initially diagnosed during 09/2021 CVA hospitalization, UCx at time showing E Coli, Group B Strep -UA this admission- +leukocyte esterase, WBCs, bacteria Will be back [facility] on meropenem to complete an additional 5 days Afib -Newly diagnosed within past 1-2 months -Anticoagulation with Eliquis 5 mg BID ongoing -Continue home Eliquis -Currently rate-controlled without medication Recent fall (2) Scalp contusion: (3) Acute UTI (urinary tract infection): (4) Atrial fibrillation: (5) History of CVA with residual deficit: Total Time Total Time Spent Total Time Spent (In Minutes): It required greater than 30 minutes to prepare this patient for discharge Discharge Plan Discharge Items Patient Disposition: Transfer Inpatient Rehab Fac Reason For Visit: AMS Discharge Diagnosis: confusion-> metablic encephalopathy secondary to pseudomonas uti present on admission Activity: Resume your previous activity Non-emergency contact: Primary Care Provider Call non-emergency contact if: your symptoms worsen and you have a fever Follow-up/Referrals: Felicitas Castaneda PA-C [Primary Care Provider] - Diet: Regular Addtl Attending Provider Instructions: complete antibiotics course for urinary tract infection plenty of water use walker Pending Studies at Discharge: No Stand-Alone Forms: My [facility] Skilled Items Patient informed of condition?: Yes DNR: Yes Discharge Level of Care: Other Communicable Disease: No Discharge Prognosis: Stable Lines: None Urinary Catheter: No Medications and DC Order Prescriptions: Continued cranberry 500 mg capsule 500 mg PO QDL RF: 0 docusate sodium [Colace] 100 mg capsule 100 mg PO TIDM RF: 0 cholecalciferol (vitamin D3) [Dialyvite Vitamin D] 125 mcg (5,000 unit) capsule 125 mcg PO QAM RF: 0 magnesium glycinate 100 mg tablet 400 mg PO QAM RF: 0 cyanocobalamin (vitamin B-12) [Vitamin B-12] 1,000 mcg Tablet 500 mcg PO QDD RF: 0 zinc 50 mg Tablet 50 mg PO QDL RF: 0 Acidophilus Tablet,Chewable 1 tab PO HS RF: 0 coQ10 (ubiquinol) 200 mg Capsule 400 mg PO QAM RF: 0 lisinopril 20 mg tablet 20 mg PO AMHS RF: 0 levothyroxine 100 mcg tablet 100 mcg PO DAILYBB RF: 0 hydrochlorothiazide 25 mg tablet 25 mg PO QAM RF: 0 Eliquis 2.5 mg tablet 5 mg PO BID RF: 0 ascorbic acid (vitamin C) [Vitamin C] 500 mg Tablet 500 mg PO QAM RF: 0 omeprazole 20 mg Capsule,Delayed Release(Dr/Ec) 20 mg PO QDL RF: 0 celecoxib 100 mg capsule 100 mg PO QDD RF: 0 aspirin 81 mg tablet,delayed release (DR/EC) 81 mg PO QDL RF: 0 calcium citrate 500 mg Tablet, Effervescent 500 mg PO DAILYBL RF: 0 Natrol 5-HTP 50 mg Capsule 100 mg PO HS RF: 0 hydralazine 50 mg Tablet 50 mg PO QID RF: 0 Discontinued cefuroxime axetil 250 mg Tablet 250 mg PO BID RF: 0 Discharge Orders: Discharge Order (Routine); Ordered 10/03/21 Ordered By: Miguel Quinonez Admission Data Admit Date/Time: 10/01/21 23:33 Attending Provider: Miguel Quinonez Admit Provider: Negar Corrales Primary Care Provider: Felicitas Castaneda Other Providers: Jayy Martin Coding Level of Care Code D/C DAY MANAGEMENT >30 MINS Diagnoses AMS (altered mental status) R41.82 Scalp contusion S00.03XA Encounter type: initial encounter Acute UTI (urinary tract infection) N39.0 Atrial fibrillation I48.91 Atrial fibrillation type: unspecified History of CVA with residual deficit I69.30
== END 2021-10-03 19:20 | DRG 689 ==
LOC: ED 17:58 → EDINP 23:33 → SUATTDRO 23:33 → EDINP 10-02 00:03